=== PATIENT | female | born 1935 | race Caucasian/White ===

== ENCOUNTER 2017-08-10 21:44 | Inpatient (IN) | payer MEDICARE ==
--- NOTE | 2017-08-10 23:05 | ED ---
Lower Extremity - HPI Summary HPI Summary: 82 female presents to ED BIBA accompanied by sons with complaints of left hip pain after a fall. Patient states she falls often due to a condition she has had for years. She gets dizzy and falls and this has already been worked up multiple times in the past with neurologist without findings. Thought to be a genetic trait causing dizzy spells and falling. Today she experienced this spell and fell onto her left hip early this evening. Has been unable to walk and bear weight since due to the pain. Denies numbness/tingling. States it hurts when she tries to move her left lower extremity. Denies any neck or back pain. Denies hitting head. No LOC. No other complaints at this time. No abdominal pain or chest pain. - History of Current Complaint Chief Complaint: EDExtremityLower Stated Complaint: FALL, LEFT HIP PAIN Time Seen by Provider: 08/10/17 22:12 Hx Obtained From: Patient, Family/Cofounder - son Mechanism Of Injury: Fall From A Standing Position Onset of Pain: Immediate, Post Accident Onset/Duration: Still Present Severity Initially: Moderate Severity Currently: Moderate Pain Intensity: 5 Pain Scale Used: 0-10 Numeric Timing: Constant Location: Is Discrete @ - left hip Character Of Pain: Sharp, Aching Associated Signs And Symptoms: Positive: Negative Aggravating Factor(s): Standing, Ambulation, Movement, Weight Bearing Alleviating Factor(s): Rest, Nothing Able to Bear Weight: No - Allergies/Home Medications Allergies/Adverse Reactions: Allergies Allergy/AdvReac Type Severity Reaction Status Date / Time Penicillins Allergy Severe Anaphylatic Verified 01/17/17 11:20 Shock PMH/Surg Hx/FS Hx/Imm Hx Endocrine/Hematology History: Denies: Hx Anticoagulant Therapy, Hx Diabetes Cardiovascular History: Denies: Hx Hypertension, Hx Pacemaker/ICD GI History: Reports: Other GI Disorders - COLITIS History: Denies: Hx Renal Disease Sensory History: Reports: Hx Cataracts - LEFT EYE SURGERY 2012, Hx Contacts or Glasses - GLASSES, Hx Hearing Aid - WEARS OCCASSIONALLY Opthamlomology History: Reports: Hx Cataracts - LEFT EYE SURGERY 2012, Hx Contacts or Glasses - GLASSES Psychiatric History: Reports: Hx Depression Denies: Hx Panic Disorder - Cancer History Cancer Type, Location and Year: BREAST CA 2006. SKIN CANCER REMOVED FROM NOSE Hx Chemotherapy: Yes Hx Radiation Therapy: Yes - Surgical History Surgery Procedure, Year, and Place: APPENDIX A CHILD. 1980 COLLAPSED LUNG [facility]. 1985 HYSTERECTOMY [facility]/ DEVELOPED ADHESIONS AFTER HYSTERECTOMY. 2006 LEFT BREAST LUMPECTOMY(CANCEROUS) [facility]. 2006 INFUSAPORT [facility] SINCE HAS BEEN REMOVED. CATARACTS Hx Anesthesia Reactions: No - Immunization History Immunizations Up to Date: Yes Infectious Disease History: No Infectious Disease History: Denies: Traveled Outside the [place] in Last 30 Days - Family History Known Family History: Negative: Hypertension, Diabetes - Social History Alcohol Use: Rare Alcohol Amount: special events/occasions Substance Use Type: Reports: None Smoking Status (MU): Former Smoker Type: Cigarettes Amount Used/How Often: 1PPD 25 YRS Have You Smoked in the Last Year: No Review of Systems Constitutional: Negative Cardiovascular: Negative Respiratory: Negative Gastrointestinal: Negative Positive: Arthralgia, Myalgia, Decreased ROM - left hip Positive: Bruising - from previous falls, healing Neurological: Negative All Other Systems Reviewed And Are Negative: Yes Physical Exam Triage Information Reviewed: Yes Vital Signs On Initial Exam: Initial Vitals Temp Pulse Resp BP Pulse Ox 97.8 F 107 22 141/77 94 08/10/17 22:01 08/10/17 22:01 08/10/17 22:01 08/10/17 22:01 08/10/17 22:01 tachycardia noted, asymptomatic, patient in pain Vital Signs Reviewed: Yes Appearance: Positive: Well-Appearing, Well-Nourished, Pain Distress - mild to moderate when trying to move Skin: Positive: Warm, Skin Color Reflects Adequate Perfusion, Dry, Other - healing bruising noted on left face and left thigh yellow/purple in color from previous falls per patient. Negative: Cold, Cyanosis @, Pale, Erythema @ Head/Face: Positive: Normal Head/Face Inspection Eyes: Positive: Conjunctiva Clear ENT: Positive: Hearing grossly normal Neck: Positive: Supple, Nontender Respiratory/Lung Sounds: Positive: Clear to Auscultation, Breath Sounds Present. Negative: Rales, Rhonchi, Wheezes Cardiovascular: Positive: Normal, RRR, Pulses are Symmetrical in both Upper and Lower Extremities - 2+ pedal b/l. Negative: Murmur, Rub Musculoskeletal: Positive: Limited @ - left lower extremity at hip, Pain @ - left hip with palpation and any movement, proximal femur, Other - rest of MSK exam normal. Negative: Interruption @, Abnormal @, Edema Left, Edema Right Neurological: Positive: Normal, Sensory/Motor Intact, Alert, Oriented to Person Place, Time, NV Bundle Intact Distally, Unable to Assess Gait - Balta Coma Scale Coma Scale Total: 15 Diagnostics - Vital Signs Vital Signs Temp Pulse Resp BP Pulse Ox 08/10/17 22:26 113 18 94 08/10/17 22:05 107 20 141/68 93 08/10/17 22:03 105 14 93 08/10/17 22:01 97.8 F 107 22 141/77 94 - Laboratory Lab Statement: Any lab studies that have been ordered have been reviewed, and results considered in the medical decision making process. - Radiology left hip/pelvis Xray Interpretation: Positive (See Comments) - left femoral neck fracture Radiology Interpretation Completed By: ED Physician - Dr Horne and myself chest Xray Interpretation: No Acute Changes Radiology Interpretation Completed By: ED Physician - and myself Lower Extremity Course/Dx - Course Course Of Treatment: xray obtained and positive for femoral neck fracture of left hip. basic labs/ekg and chest xray obtained for pre op prior to admission. spoke with Dr Ruvalcaba at 11:55pm who will admit. Given pain med orders. no concerns for other injuries at this time. no neck, back or head pain/injury. normal vitals other than slight tachycardia however patient is in pain due to fracture. rest of PE normal. - Diagnoses Differential Diagnosis/HQI/PQRI: Positive: Dislocation, Fracture (Closed), Sprain, Strain Provider Diagnoses: Hip fracture, left Discharge - Discharge Plan Condition: Stable Disposition: ADMITTED TO [facility] Referrals: Jayden Murcia NP [Primary Care Provider] -
[2017-08-10] MEDS ORDERED: NS 0.9% 1000 ML* 1,000 ML IV SCH (23:45)
[2017-08-10] MEDS ORDERED: Acetaminophen TAB* 325 MG PO PRN (23:49)
[2017-08-10] MEDS ORDERED: Ondansetron INJ* 2 MG/ML VIAL IV PRN (23:50)
[2017-08-10] MEDS ORDERED: Albuterol 2.5 MG/3 ML NEB.SOL* (0.083%) INH PRN (23:50)
[2017-08-10] MEDS ORDERED: CMCS: Melatonin (NF) 3 MG TAB PO PRN (23:50)
[2017-08-10] MEDS ORDERED: fentaNYL* 50 MCG/ML 2 ML VIAL (100 MCG VIAL) IV SLOW PU PRN (23:50)
--- NOTE | 2017-08-10 23:52 | HP ---
H&P (Free Text) History and Physical: PCP: Mahin Murcia NP Date/Time: 08/10/2017 2340 CC: L hip pain s/p fall HPI: Mrs Paige is an 82YO female HX ulcerative colitis, HLD, & breast CA who has a long-standing history of falls. She is here tonight after such a fall witnessed by her son who states she got up, stated, "Here I go." and fell to the floor which is her typical. She denies chest pain, SOB, palpitations, N/V, light-headedness, or spinning. She does states she got dizzy, but when clarified means she became weak all over. There was no head injury or LOC. At this time, she only complains of L hip pain which has been confirmed to have a L femoral neck FX on XRY. She is noted to have katy-oral & nasal facial ecchymosis from a fall Tuesday for which she was not evaluated. She denies neck pain or other related issues. Her falling history has been evaluated by neurology without definitive findings per patient/family. 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 Aspirin TAB* [Aspirin 325 MG TAB*] 325 mg PO DAILY 06/25/13 Balsalazide (NF) 3,000 mg PO BID 06/25/13 Polyethylene Glycol 3350* [Miralax*] 17 gm PO DAILY 06/25/13 Allergies Penicillins Allergy (Severe, Verified 01/17/17 11:20) Anaphylatic Shock PSurgHx appendectomy hysterectomy SocHx: no tobacco, alcohol, or recreational drugs; lives with her son; full code status FamHx: reviewed, non-contributory to presentation ROS: as above, otherwise reviewed and all were negative vitals: Vital Signs Temp 36.6 C 08/10/17 22:01 Pulse 108 08/10/17 23:30 Resp 17 08/10/17 23:30 BP 135/62 08/10/17 23:30 Pulse Ox 93 08/10/17 23:30 Intake & Output 08/10/17 08/10/17 08/11/17 11:59 23:59 11:59 Weight 52.163 kg Constitutional: NAD, normally developed, elderly white female HEENM: sclera/conjunctiva: anicteric/clear; hearing: ; oropharynx: clear, mucosa tacky Neck: soft tissue: non-tender; thyroid: normal Pulmonary: clear to auscultation bilaterally, good aeration, no accessory muscle use CV: RR/RR, normal S1S2, no carotid bruit, no jugular venous distention, 2+ B DP/ PT, no edema Abdominal: soft, non-distended, non-tender, no rebound/guarding/rigidity, normoactive bowel sounds, no hepatosplenomegaly or masses, no costovertebral angle tenderness Musculoskeletal: general: LLE shortened & externally rotated; gait: currently non-ambulatory Integumental: katy-oral ecchymosis L>R Psychiatric orientation: AA&O to PPS affect: calm mood: cooperative eye contact: fair content: reliable responses: timely insight: fair Testing: Lab Results 08/11/17 08/11/17 08/11/17 Range/Units 00:15 00:15 00:15 WBC 7.7 (3.5-10.8) 10^3/ul RBC 4.01 (4.0-5.4) 10^6/ul Hgb 12.8 (12.0-16.0) g/dl Hct 38 (35-47) % MCV 94 (80-97) fL MCH 32 H (27-31) pg MCHC 34 (31-36) g/dl RDW 14 (10.5-15) % Plt Count 128 L (150-450) 10^3/ul MPV 8 (7.4-10.4) um3 Neut % (Auto) 85.2 H (38-83) % Lymph % (Auto) 7.7 L (25-47) % [place] % (Auto) 6.7 (1-9) % Eos % (Auto) 0.2 (0-6) % Baso % (Auto) 0.2 (0-2) % Absolute Neuts (auto) 6.6 (1.5-7.7) 10^3/ul Absolute Lymphs (auto) 0.6 L (1.0-4.8) 10^3/ul Absolute Monos (auto) 0.5 (0-0.8) 10^3/ul Absolute Eos (auto) 0 (0-0.6) 10^3/ul Absolute Basos (auto) 0 (0-0.2) 10^3/ul Absolute Nucleated RBC 0 10^3/ul Nucleated RBC % 0.1 INR (Anticoag Therapy) 0.94 (0.77-1.02) Blood Type O Positive Antibody Screen Pending ECG, personally reviewed: sinus tachycardia rate 101, no ischemia CXR, personally reviewed: no acute process Impression: 82F presenting with L femoral neck FX s/p mechanical fall DIAGNOSIS & PLAN Primary L femoral neck FX 2nd mechanical fall : Carley Dickens MD orthopedic surgery will be called in the AM to evaluate : NPO after midnight x/ meds with sips of water : pain control : Pre-operative Revised Cardiac Risk Index is 0.4% & no further pre-op work up is indicated. : supportive care Secondary ulcerative colitis : no acute issues : review meds once reconciled HLD : review meds once reconciled HX trigeminal neuralgia : no acute issues HX L breast invasive ductal CA : s/p chemo-/radio-TX : no acute issues Admission Rational: inpatient for surgical management of L femoral neck FX; inappropriate for outpatient setting DVTp: heparin SQ x1 tonight, resume when OK per surgery post-op Code Status: full HCP: son
[2017-08-11 00:26] LABS: ABS Basophils 0 10^3/ul (0-0.2); ABS Eosinophils 0 10^3/ul (0-0.6); ABS Lymphocytes 0.6 10^3/ul (1.0-4.8); ABS Monocytes 0.5 10^3/ul (0-0.8); ABS Neutrophils 6.6 10^3/ul (1.5-7.7); ABS Nucleated RBC 0 10^3/ul; Eosinophil % 0.2 % (0-6); Hematocrit 38 % (35-47); Hemoglobin 12.8 g/dl (12.0-16.0); Lymphocyte % 7.7 % (25-47); Mean Corpuscular HGB Conc 34 g/dl (31-36); Mean Corpuscular Hemoglobin 32 pg (27-31); Mean Corpuscular Volume 94 fL (80-97); Mean Platelet Volume 8 um3 (7.4-10.4); Nucleated Red Blood Cells % 0.1; Platelet Count 128 10^3/ul (150-450); Red Blood Count 4.01 10^6/ul (4.0-5.4); Red Cell Distribution Width 14 % (10.5-15); White Blood Count 7.7 10^3/ul (3.5-10.8)
[2017-08-11 00:40] LABS: INR 0.94 (0.77-1.02)
[2017-08-11 01:19] LABS: EGFR Non-African American 123.5 (>60)
[2017-08-11] MEDS: oxyCODONE TAB* 5 MG TAB PO PRN (06:24)
--- NOTE | 2017-08-11 07:45 | RAD ---
INDICATION: Traumatic fracture left hip COMPARISON: Pelvis April 22, 2016 TECHNIQUE: An AP view of the pelvis and AP views of the hip in neutral and abducted position were obtained FINDINGS: Bones: There is a subcapital fracture of the left femur with varus deformity. No other fractures are evident. Joint spaces: The right hip articulates normally. Left femoral head is positioned in the acetabulum. SI joints/symphysis: The SI joints and symphysis are intact. Other: None IMPRESSION: SUBCAPITAL FRACTURE LEFT FEMUR.
--- NOTE | 2017-08-11 07:46 | RAD ---
INDICATION: Traumatic fracture left hip COMPARISON: Chest x-ray April 22, 2016 TECHNIQUE: PA and lateral dual-energy views were obtained. FINDINGS: Bones/Soft Tissues: There are no acute bony findings. There are surgical clips in left axilla. Cardiomediastinal: The chronic silhouette is unchanged. There is uncoiling of the thoracic aorta. The heart is normal in size. Lungs: There are no infiltrates. Pleura: There are no pleural effusions. Other: None IMPRESSION: NO ACTIVE DISEASE.
[2017-08-11] MEDS ORDERED: Pneumococcal *Vac Polyvalent 0.5 ML VIAL IM ONE (09:00)
[2017-08-11] MEDS: Docusate CAP* 100 MG PO SCH ×2 (09:10→22:09)
[2017-08-11] MEDS: Pantoprazole IV* 40 MG IV SCH (09:22)
[2017-08-11 11:47] LABS: Urine Appearance Clear; Urine Blood Negative (Negative); Urine Color Yellow; Urine Ketones Trace (Negative); Urine Protein Negative (Negative); Urine Specific Gravity 1.015 (1.010-1.030); Urine Urobilinogen Negative (Negative)
[2017-08-11] MEDS ORDERED: ceFAZolin 2 GM PREMIX (*) 2 GM/50 ML BAG IVPB ONE (12:45)
--- NOTE | 2017-08-11 13:30 | CONS ---
CONSULTATION NOTE: DATE OF CONSULT: 08/11/17. ATTENDING PROVIDER: Dr. Sameer Dickens. CHIEF COMPLAINT: Left hip pain status post fall. HISTORY OF PRESENT ILLNESS: Ms. Paige is an 82-year-old female with a history of ulcerative colitis, hyperlipemia, breast cancer, and a long history of falls. Up until this point, she was having falls for at least the past 4 years , 4 to 5 times per year, more recently they have evolved to be once every 2 weeks and this week, she has had 3 falls. The fall that brought her in occurred on the night of 08/10. This fall was witnessed by her son, who states that she got up from a chair and stated, "here I go." Patient fell to the floor which is typical, according to her family within the room. Patient was startled, but she did not immediately state that she had any left leg pain, she was brought to sit back up on the cough and it was not until getting up to go to bed that her family realized that she was injured badly enough to come to the emergency room. At the time of the fall, she did not have any chest pain, shortness of breath, dizziness, changes in vision, loss of consciousness. She notes that she did not hit her head. Earlier in the week, she did fall and hit her face, 3 days prior to this, which resulted in bruising of the perioral region and of her nose, but she did not injure her face with the fall in which she fell on to her left hip. Patient states that prior to her fall, she does feel that she get dizzy but does not have any chest pain, shortness of breath. She cannot say if she has any mechanical falls or tripping. At this time, she complains of left hip pain only with movement. X-rays shows a left femoral neck fracture. Patient has had surgery before. She has no difficulties with anesthesia. She has no history of heart attack or strokes. She has no cardiac history. No pulmonary history. She has never had a blood clot. She does not have diabetes or any thyroid disease. PAST MEDICAL HISTORY: Includes ulcerative colitis, hyperlipidemia, trigeminal neuralgia, breast cancer, possible diagnosis of Parkinson's which has been questioned by her neurologist, last evaluation one year ago. PAST SURGICAL HISTORY: Appendectomy, hysterectomy. ALLERGIES: PENICILLIN. MEDICATIONS: as noted in EHR SOCIAL HISTORY: Patient does not drink alcohol, smoke or use recreational drugs. She lives with her son. She is a full code. REVIEW OF SYSTEMS: General: Denies any fever, chills, feelings of illness. HEENT: No headaches, acute changes in vision or acute changes in hearing. Patient does have an injury to her nose and face from a fall earlier this week. Cardiac: No chest pain, no irregular beats. No history of VT. Respiratory: No shortness of breath. Patient does have a cough. Abdomen: No GI upset and no nausea, no vomiting or diarrhea. : No burning with urination. Musculoskeletal: Left lower extremity is painful. Neuro: No tingling, no numbness. Skin: Bruising of her face. Heme: Confirms easy bruising, but no easy bleeding. Takes ASA 325 QD. PHYSICAL EXAM: Vitals: Temp 98.3, pulse 87, respiratory rate 16, oxygen saturation 91, blood pressure 128/64. Constitutional: No acute distress, well appearing. Patient answers questions fairly readily, but she does sometimes lose track of her thoughts. HEENT: EOMI. Head is normocephalic, atraumatic. Neck: No cervical tenderness. Pulmonary: Normal rate and effort of breathing. Cardio: Radial pulse 2+, regular rhythm. Abdomen: Soft, no masses. No suprapubic tenderness. Musculoskeletal: Left lower extremity is shortened, externally rotated. Patient is unable to produce movement at the left hip or knee due to pain. Dorsiflexion and plantarflexion are intact at the ankle. Neuro: Sensation is intact distally on the left lower extremity. Vascular: Calves supple, nontender. 2+ dorsalis pedis and posterior tibial pulse. Skin: Patient has bruising around the perioral region as well as into bilateral cheeks and across the bridge of the nose. She has ecchymosis as well of the lateral aspect of the left lower extremity. ASSESSMENT: Subcapital fracture of the left femur which is also shown on x-ray done 08/10. PLAN: Patient will be taken to the operating room by Dr. Sameer Dickens around 1 p.m. for right hip hemiarthroplasty on 08/11/17. She has been evaluated by the hospitalist service and has been deemed as medically optimized for surgery. REINA CORRAL [id number]/[facility] #: [id number] [facility] HOSPITALMartha
[2017-08-11] MEDS ORDERED: Midazolam* 1 MG/ML 2 ML VIAL (2 MG) ONE (13:57)
[2017-08-11] MEDS ORDERED: fentaNYL* 50 MCG/ML 2 ML VIAL (100 MCG VIAL) ONE (13:57)
[2017-08-11] MEDS ORDERED: Morphine PF AMP (0.5MG/ML)* 5 MG/10 ML AMP ONE (14:02)
[2017-08-11] MEDS ORDERED: ROPIVACAINE 5 MG/ML 30 ML BTL (0.5%) ONE (14:03)
[2017-08-11] MEDS ORDERED: Propofol* 10 MG/ML 20 ML BTL IV PUSH ONE (15:05)
[2017-08-11] MEDS ORDERED: oxyCODONE/Acetamin 5/325 MG* TAB PO PRN ×2 (15:51→16:30)
[2017-08-11] MEDS ORDERED: Nalbuphine* 20 MG/ML 1 ML VIAL IV PRN ×2 (15:51)
[2017-08-11] MEDS ORDERED: Ondansetron INJ* 2 MG/ML VIAL IV PRN (15:51)
[2017-08-11] MEDS ORDERED: Acetaminophen TAB* 325 MG PO PRN (15:51)
[2017-08-11] MEDS ORDERED: HYDROmorphone INJ* 1 MG/ML CARPUJECT SYRINGE IV PRN (15:51)
[2017-08-11] MEDS ORDERED: Naloxone* 0.4 MG/ML 1 ML VIAL IV PRN ×2 (15:51)
[2017-08-11] MEDS ORDERED: oxyCODONE TAB* 5 MG TAB PO PRN (15:51)
[2017-08-11] MEDS ORDERED: Ibuprofen TAB* 400 MG PO PRN (15:51)
[2017-08-11] MEDS ORDERED: Morphine INJ* 2 MG/ML 1 ML SYRINGE (TWO MG - NEW SYRINGE VERSION) IV PRN (16:30)
--- NOTE | 2017-08-11 17:06 | PN ---
Subjective Date of Service: 08/11/17 Interval History: Patient seen and examined at bedside in PACU. Denies fever, chills, shortness of breath, chest discomfort, N/V/D. Pt states that pain is controlled at this time. Pt has an essential tremor at baseline. Family History: Unchanged from Admission Social History: Unchanged from Admission Past Medical History: Unchanged from Admission Objective Active Medications: Acetaminophen (Tylenol Tab*) 650 mg PO Q6H PRN Reason: FEVER/PAIN Acetaminophen (Tylenol Tab*) 650 mg PO ONCE PRN Reason: PAIN - MILD Stop: 08/11/17 18:00 Albuterol (Ventolin 2.5 Mg/3 Ml Neb.Aminah*) 2.5 mg INH Q2H PRN Reason: SOB/ WHEEZING Docusate Sodium (Colace Cap*) 200 mg PO BID MINESH Fentanyl Citrate (Fentanyl*) 25 mcg IV SLOW PU Q2H PRN Reason: PAIN Heparin Sodium (Porcine) (Heparin Vial(*)) 5,000 units SUBCUT ED ONCE ONE Stop: 08/11/17 23:51 Hydromorphone HCl (Dilaudid Injic*) 0.1 mg IV Q5M PRN Reason: PAIN - SEVERE Stop: 08/11/17 18:00 Sodium Chloride (Ns 0.9% 1000 Ml*) 1,000 mls @ 50 mls/hr IV PER RATE MINESH Ibuprofen (Motrin Tab*) 400 mg PO ONCE PRN Reason: MILD pain Stop: 08/11/17 18:00 Melatonin (Melatonin (Nf)) 3 mg PO BEDTIME PRN; Protocol Reason: Sleep Nalbuphine HCl (Nubain*) 5 mg IV Q6H PRN Reason: Nausea/Vomiting Stop: 08/12/17 06:00 Nalbuphine HCl (Nubain*) 5 mg IV Q6H PRN Reason: pruritis Stop: 08/12/17 06:00 Naloxone HCl (Narcan*) 0.08 mg IV Q2M PRN Reason: severe induced resp depression Stop: 08/11/17 18:30 Naloxone HCl (Narcan*) 0.08 mg IV Q2M PRN Reason: severe induced resp depression Stop: 08/12/17 06:00 Ondansetron HCl (Zofran Inj*) 4 mg IV Q6H PRN Reason: NAUSEA Ondansetron HCl (Zofran Inj*) 4 mg IV Q6H PRN Reason: Nausea/Vomiting Stop: 08/12/17 06:00 Oxycodone HCl (Roxycodone Tab*) 10 mg PO Q4H PRN Reason: PAIN Oxycodone HCl (Roxycodone Tab*) 5 mg PO ONCE PRN Reason: PAIN - MODERATE Stop: 08/11/17 18:00 Oxycodone/Acetaminophen (Percocet 5/325 Tab*) 1 tab PO Q4H PRN Reason: Moderate Pain Stop: 08/12/17 06:00 Pantoprazole Sodium (Protonix Iv*) 40 mg IV DAILY MINESH Vital Signs - 8 hr 08/11/17 09:15 Respiratory 16 Rate Oxygen Devices in Use Now: None Appearance: NAD, laying in bed Ears/Nose/Mouth/Throat: Mucous Membranes Moist Respiratory: Symmetrical Chest Expansion and Respiratory Effort, Clear to Auscultation Cardiovascular: NL Sounds; No Murmurs; No JVD, RRR Abdominal: NL Sounds; No Tenderness; No Distention Extremities: No Edema Skin: No Rash or Ulcers, - - Dressing to left hip clean, dry and intact. Pt with ecchymosis to her face, older appearing on both sides of face and newer on left side of face Neurological: NL Muscle Strength and Tone, - - Alert and Oriented to Person, confused Lines/Tubes/Other Access: Clean, Dry and Intact Peripheral IV - site benign Nutrition: Taking PO's Result Diagrams: 08/11/17 00:15 08/11/17 00:15 Assess/Plan/Problems-Billing Assessment: Ms. Paige is an 82 yo female with PMH significant for ulcerative colitis, HLD, trigeminal neuraliga, left breast CA - S/P chemo and radiation who presented to the emergency room with complaints of left hip pain after a fall at home. - Patient Problems (1) Fracture of left hip Code(s): S72.002A - FRACTURE OF UNSP PART OF NECK OF LEFT FEMUR, INIT SNOMED Code(s): 699631667 Comment: - S/P left hip hemiarthroplasty, POD - Ortho consult, input appreciated - Management per Ortho - OT/PT eval in the AM - Continue pain management (2) Falls Comment: - Frequent falls according to son. (3) Ulcerative colitis Code(s): K51.90 - ULCERATIVE COLITIS, UNSPECIFIED, WITHOUT COMPLICATIONS SNOMED Code(s): 54422674 Comment: - Continue balsalazide. (4) Breast cancer, left Code(s): C50.912 - MALIGNANT NEOPLASM OF UNSPECIFIED SITE OF LEFT FEMALE BREAST SNOMED Code(s): 119962105 Comment: - S/P chemo and radiation (5) HLD (hyperlipidemia) Code(s): E78.5 - HYPERLIPIDEMIA, UNSPECIFIED SNOMED Code(s): 65019327 (6) Trigeminal neuralgia Code(s): G50.0 - TRIGEMINAL NEURALGIA SNOMED Code(s): 42248604 (7) DVT prophylaxis Code(s): NRP9154 - SNOMED Code(s): 266862429 Comment: - SCDs - Heparin Q12H until Tuesday, then Lovenox 30mg daily per Ortho (8) Full code status Code(s): Z78.9 - OTHER SPECIFIED HEALTH STATUS SNOMED Code(s): 493929690 Status and Disposition: Inpatient. Discharge to home when medically stable, suspect she may need rehab at discharge.
--- NOTE | 2017-08-11 17:40 | RAD ---
Indication: Left hemiarthroplasty. Single view of the pelvis demonstrates left hip arthroplasty in satisfactory position. No loosening is noted. IMPRESSION: Left hip hemiarthroplasty in satisfactory position.
[2017-08-11] MEDS: NS 0.9% 1000 ML* 1,000 ML IV SCH (18:00)
--- NOTE | 2017-08-11 20:32 | CONS ---
CONSULTATION NOTE: ADDENDUM: Please note that the entirety of this consult is based on the left femur. In the assessment and plan, it was noted right femur that is incorrect, this is left femur with the subcapital fracture that is going for hemiarthroplasty with Dr. Dickens on 08/11/17. REINA CORRAL [id number]/[facility] #: [id number] [facility] INSANEMartha
[2017-08-11] MEDS ORDERED: Heparin VIAL(*) 5000 UNITS/ML VIAL (FIVE THOUSAND) SUBCUT SCH (21:00)
[2017-08-11] MEDS ORDERED: Balsalazide (NF) 750 MG CAP PO SCH (21:00)
[2017-08-11] MEDS: Magnesium Hydroxide LIQ* 30 ML UDC PO SCH (22:09)
[2017-08-11] MEDS: ceFAZolin 1 GM in Dextrose (*) 1 GM/50 ML BAG IVPB SCH (22:10)
[2017-08-11] MEDS: PTO: Balsalazide (NF) 750 MG CAP PO SCH (22:25)
[2017-08-11] MEDS ORDERED: Heparin VIAL(*) 5000 UNITS/ML VIAL (FIVE THOUSAND) SUBCUT ONE (23:50)
[2017-08-12] MEDS: Acetaminophen TAB* 325 MG PO SCH ×4 (00:19→18:09)
--- NOTE | 2017-08-12 00:32 | OP ---
DATE OF OPERATION: 08/11/17 - ROOM #339 DATE OF : 33 SURGEON: Sameer Dickens MD ASSISTANTS: 1. Carisa Medina RPA 2. REINA Arita ANESTHESIOLOGIST: Jen Alicea MD ANESTHESIA: Spinal sedation. PRE-OP DIAGNOSIS: Displaced left femoral neck fracture. POST-OP DIAGNOSIS: Displaced left femoral neck fracture. OPERATIVE PROCEDURE: Left hip hemiarthroplasty. ESTIMATED BLOOD LOSS: 150 cc. COMPLICATIONS: None. HARDWARE: Christin #4 M/L taper with reduced neck, +0, 22 mm head, 46 mm bipolar head. SUMMARY: Ms. Paige is an 82-year-old female who has been having more and more troubles with falling. She had fallen yesterday evening and had a shortened and very painful left leg. She was brought to the emergency room here at [facility] and x-rays were taken, which had found a displaced femoral neck fracture. She was admitted overnight and I was notified this morning that she had been admitted. I add her on to the OR schedule and when I met her preoperatively, I discussed with her and her son risks of surgery such as infection, scar formation, stiffness, DVT, pulmonary embolism, hardware failure, leg length discrepancy, and instability. She had been declared medically optimized and they wished to proceed. DESCRIPTION OF PROCEDURE: The patient was brought to the OR and spinal anesthesia was introduced. She was then rolled into the right lateral decubitus position. Axillary roll was placed and she was wide awake at this point and reported that she felt fairly comfortable in this position. Left hip area was prepped and then draped. Incision was made, centered on the greater trochanter and carried down through the skin and subcutaneous tissues. Small bleeders encountered were ligated using electrocautery. Fascia was exposed and sharply incised. Bursa was taken down from the greater trochanter and developing the interval on the posterior aspect of the gluteus medius/gluteus minimus. I was able to get a Hohmann underneath. Piriformis could be easily palpable underneath. Electrocautery was then used to take down piriformis capsule and short external rotators together. Dark blood indicative of hematoma was immediately evident. Area was pulse lavaged and the area of the fracture was immediately evident. Leg was brought into internal rotation showing the femoral neck and the cutting guide was placed and the femoral neck cut was cleaned up. This helped in exposure so that I could see the fracture on the femoral head side. Corkscrew was fully seated in the femoral head and then used to remove the femoral head. This measured 42 mm in size. When I templated her, I thought it would be between 42 to 43 mm and that she would take either a 4 or a 5 for the implant. She had still a champagne flute for the proximal femur as she still had decent cortex, so I thought we would be able to be noncemented. Acetabulum was swept multiple times as well as pulse lavaged to remove other small bony bits and eventually this was nice and clean. Attention was returned to the femoral neck. Correct cutting guide was then found and femoral neck cut was recut and additional bone was taken. Box osteotome was used to open a femoral canal and the canal finder was not easily passed. Canal finder came down a little bit, but I then had to work it a little bit. I was, however, eventually able to bring it further down-wards. Beginning with a 4 broach, she was then broached. I had lateralized with the broach, but even with the 4, I could not fully seat coming to the end of the rasp with the end of the rasp being several millimeters high. I continued to impact downwards a little bit, but I did not want to break the femur. She was then trialed with a +0 monopolar head and actually this seemed to equalize her leg length and she had excellent stability throughout. With extension, she stayed nicely located as well and the knee did not extend as I brought her into extension. Therefore, I thought she was where she needed to be. The bipolar head was removed and the #4 broach was still solidly in place. A #4 reduced neck M/L taper was called for as this was what was trialed and what I had templated for. A #4 was then impacted into place and part of the porous ingrowth portion stayed free as I did not want to break the femur. She was again trialed with a +0 bipolar head and her leg length appeared to be good +0, 22 mm head, followed by the polyethylene and the metal cap were placed and she was then reduced. Capsule and short external rotators were repaired to the posterior aspect of the greater trochanter. Hip was again grossly pulse lavaged. The fascia was repaired using interrupted #1 Vicryl sutures and the last of the 3 L of pulse lavage were then used. Subcutaneous tissues were reapproximated in 2 layers and then skin was closed using mara. Sterile dressing was applied in the OR. Abduction pillow was also applied in the OR. The patient was then rolled on to the hospital bed and was stable on transfer to the recovery room. [id number]/[facility] #: [id number] MTDMartha
[2017-08-12] MEDS: NS 0.9% 1000 ML* 1,000 ML IV SCH ×2 (02:47→15:50)
[2017-08-12 05:51] LABS: Hematocrit 26 % (35-47); Hemoglobin 8.8 g/dl (12.0-16.0); Mean Corpuscular HGB Conc 34 g/dl (31-36); Mean Corpuscular Hemoglobin 32 pg (27-31); Mean Corpuscular Volume 94 fL (80-97); Mean Platelet Volume 7 um3 (7.4-10.4); Platelet Count 103 10^3/ul (150-450); Red Blood Count 2.78 10^6/ul (4.0-5.4); Red Cell Distribution Width 14 % (10.5-15); White Blood Count 3.8 10^3/ul (3.5-10.8)
[2017-08-12 06:05] LABS: EGFR Non-African American 110.2 (>60)
[2017-08-12] MEDS: ceFAZolin 1 GM in Dextrose (*) 1 GM/50 ML BAG IVPB SCH (06:11)
--- NOTE | 2017-08-12 08:29 | PN ---
Progress Note - Progress Note Date of Service: 08/12/17 SOAP: Subjective: 82 y/o female s/p L hemiarthroplasty 08/[address] Dickens, uncompliated. + tachy overnight. + confused per nursing and family, but improving. No complaints, no questions from family. Objective: General- Well appearing, sitting in chair comfortably, NAD MSK- dressing intact, no drainage noted, no induration, erythema. + DF/PF, PT 2+ L side. Active Medications Generic Name Dose Route Start Last Admin Trade Name Freq PRN Reason Stop Dose Admin Acetaminophen 975 mg 08/12/17 00:00 08/12/17 10:25 Tylenol Tab* PO 975 mg Q6H MINESH Administration Albuterol 2.5 mg 08/10/17 23:50 Ventolin 2.5 Mg/3 Ml Neb.Aminah* INH Q2H PRN SOB/WHEEZING Balsalazide 3,000 mg 08/11/17 22:15 08/12/17 10:40 Balsalazide (Nf) PO 3,000 mg BID MINESH Administration Docusate Sodium 200 mg 08/11/17 09:00 08/12/17 10:27 Colace Cap* PO 200 mg BID MINESH Administration Enoxaparin Sodium 30 mg 08/14/17 09:00 Lovenox(*) SUBCUT Q24H MINESH Fentanyl Citrate 25 mcg 08/10/17 23:50 08/11/17 01:32 Fentanyl* IV SLOW PU 25 mcg Q2H PRN Administration PAIN Heparin Sodium (Porcine) 5,000 units 08/13/17 09:00 Heparin Vial(*) SUBCUT 08/13/17 21:30 Q12HR MINESH Heparin Sodium (Porcine) 5,000 units 08/12/17 09:00 08/12/17 10:29 Heparin Vial(*) SUBCUT 5,000 units Q12HR MINESH Administration Sodium Chloride 1,000 mls @ 75 mls/hr 08/11/17 18:58 08/12/17 02:47 Ns 0.9% 1000 Ml* IV 75 mls/hr PER RATE MINESH Administration Cefazolin Sodium 1 gm/ Sodium 50 mls @ 200 mls/hr 08/12/17 14:30 Chloride IVPB 08/12/17 14:44 ONCE ONE Magnesium Hydroxide 30 ml 08/11/17 21:00 08/11/17 22:09 Milk Of Magnesia Liq* PO Not Given BEDTIME MINESH Melatonin 3 mg 08/10/17 23:50 Melatonin (Nf) PO BEDTIME PRN Sleep Protocol Morphine Sulfate 2 mg 08/11/17 16:30 Morphine Inj (Syringe)* IV Q2H PRN PAIN SEVERE Ondansetron HCl 4 mg 08/10/17 23:50 08/11/17 09:22 Zofran Inj* IV 4 mg Q6H PRN Administration NAUSEA Oxycodone HCl 10 mg 08/11/17 06:16 08/11/17 06:24 Roxycodone Tab* PO 10 mg Q4H PRN Administration PAIN Oxycodone/Acetaminophen 2 tab 08/11/17 16:30 Percocet 5/325 Tab* PO Q4H PRN PAIN MODERATE Pantoprazole Sodium 40 mg 08/11/17 09:00 08/12/17 10:30 Protonix Iv* IV 40 mg DAILY MINESH Administration Assessment: Stable 82 y/o female s/p L hemiarthroplasty 08/[address] Dickens, uncompliated. Plan: - DVT prophylaxis- heparin in house, lovenox at D/C - Likely D/C to rehab/ SNF - WBAT, continue PT - Low UO overnight, increasing currently continue to follow, hosp. aware. Active Medications Generic Name Dose Route Start Last Admin Trade Name Freq PRN Reason Stop Dose Admin Acetaminophen 975 mg 08/12/17 00:00 08/12/17 10:25 Tylenol Tab* PO 975 mg Q6H MINESH Administration Albuterol 2.5 mg 08/10/17 23:50 Ventolin 2.5 Mg/3 Ml Neb.Aminah* INH Q2H PRN SOB/WHEEZING Balsalazide 3,000 mg 08/11/17 22:15 08/12/17 10:40 Balsalazide (Nf) PO 3,000 mg BID MINESH Administration Docusate Sodium 200 mg 08/11/17 09:00 08/12/17 10:27 Colace Cap* PO 200 mg BID MINESH Administration Enoxaparin Sodium 30 mg 08/14/17 09:00 Lovenox(*) SUBCUT Q24H MINESH Fentanyl Citrate 25 mcg 08/10/17 23:50 08/11/17 01:32 Fentanyl* IV SLOW PU 25 mcg Q2H PRN Administration PAIN Heparin Sodium (Porcine) 5,000 units 08/13/17 09:00 Heparin Vial(*) SUBCUT 08/13/17 21:30 Q12HR MINESH Heparin Sodium (Porcine) 5,000 units 08/12/17 09:00 08/12/17 10:29 Heparin Vial(*) SUBCUT 5,000 units Q12HR MINESH Administration Sodium Chloride 1,000 mls @ 75 mls/hr 08/11/17 18:58 08/12/17 02:47 Ns 0.9% 1000 Ml* IV 75 mls/hr PER RATE MINESH Administration Cefazolin Sodium 1 gm/ Sodium 50 mls @ 200 mls/hr 08/12/17 14:30 Chloride IVPB 08/12/17 14:44 ONCE ONE Magnesium Hydroxide 30 ml 08/11/17 21:00 08/11/17 22:09 Milk Of Magnesia Liq* PO Not Given BEDTIME MINESH Melatonin 3 mg 08/10/17 23:50 Melatonin (Nf) PO BEDTIME PRN Sleep Protocol Morphine Sulfate 2 mg 08/11/17 16:30 Morphine Inj (Syringe)* IV Q2H PRN PAIN SEVERE Ondansetron HCl 4 mg 08/10/17 23:50 08/11/17 09:22 Zofran Inj* IV 4 mg Q6H PRN Administration NAUSEA Oxycodone HCl 10 mg 08/11/17 06:16 08/11/17 06:24 Roxycodone Tab* PO 10 mg Q4H PRN Administration PAIN Oxycodone/Acetaminophen 2 tab 08/11/17 16:30 Percocet 5/325 Tab* PO Q4H PRN PAIN MODERATE Pantoprazole Sodium 40 mg 08/11/17 09:00 08/12/17 10:30 Protonix Iv* IV 40 mg DAILY MINESH Administration
[2017-08-12] MEDS: Docusate CAP* 100 MG PO SCH ×2 (10:27→21:42)
[2017-08-12] MEDS: Heparin VIAL(*) 5000 UNITS/ML VIAL (FIVE THOUSAND) SUBCUT SCH ×2 (10:29→21:45)
[2017-08-12] MEDS: Pantoprazole IV* 40 MG IV SCH (10:30)
[2017-08-12] MEDS: PTO: Balsalazide (NF) 750 MG CAP PO SCH ×2 (10:40→21:49)
[2017-08-12] MEDS ORDERED: ceFAZolin 1 GM* Q8H x 3 doses IVPB ONE ×2 (14:30)
--- NOTE | 2017-08-12 17:04 | PN ---
Subjective Date of Service: 08/12/17 Interval History: Patient seen and examined at bedside. Denies fever, chills, shortness of breath , chest discomfort, N/V/D. Family History: Unchanged from Admission Social History: Unchanged from Admission Past Medical History: Unchanged from Admission Objective Active Medications: Acetaminophen (Tylenol Tab*) 975 mg PO Q6H MINESH Albuterol (Ventolin 2.5 Mg/3 Ml Neb.Aminah*) 2.5 mg INH Q2H PRN Reason: SOB/ WHEEZING Balsalazide (Balsalazide (Nf)) 3,000 mg PO BID [facility] Docusate Sodium (Colace Cap*) 200 mg PO BID [facility] Enoxaparin Sodium (Lovenox(*)) 30 mg SUBCUT Q24H MINESH Fentanyl Citrate (Fentanyl*) 25 mcg IV SLOW PU Q2H PRN Reason: PAIN Heparin Sodium (Porcine) (Heparin Vial(*)) 5,000 units SUBCUT Q12HR [facility] Stop: 08/13/17 21:30 Heparin Sodium (Porcine) (Heparin Vial(*)) 5,000 units SUBCUT Q12HR [facility] Sodium Chloride (Ns 0.9% 1000 Ml*) 1,000 mls @ 75 mls/hr IV PER RATE [facility] Magnesium Hydroxide (Milk Of Magnesia Liq*) 30 ml PO BEDTIME [facility] Melatonin (Melatonin (Nf)) 3 mg PO BEDTIME PRN; Protocol Reason: Sleep Morphine Sulfate (Morphine Inj (Syringe)*) 2 mg IV Q2H PRN Reason: PAIN SEVERE Ondansetron HCl (Zofran Inj*) 4 mg IV Q6H PRN Reason: NAUSEA Oxycodone HCl (Roxycodone Tab*) 10 mg PO Q4H PRN Reason: PAIN Oxycodone/Acetaminophen (Percocet 5/325 Tab*) 2 tab PO Q4H PRN Reason: PAIN MODERATE Pantoprazole Sodium (Protonix Iv*) 40 mg IV DAILY [facility] Vital Signs - 8 hr 08/12/17 08/12/17 08/12/17 10:30 11:37 15:34 Temperature 99.3 F 99.2 F Pulse Rate 109 99 Respiratory 16 16 18 Rate Blood Pressure (mmHg) O2 Sat by Pulse 98 99 Oximetry 08/12/17 16:03 Temperature Pulse Rate Respiratory Rate Blood Pressure 110/72 (mmHg) O2 Sat by Pulse Oximetry Oxygen Devices in Use Now: Nasal Cannula - 2L Appearance: NAD, laying in bed Ears/Nose/Mouth/Throat: Mucous Membranes Moist Respiratory: Symmetrical Chest Expansion and Respiratory Effort, Clear to Auscultation Cardiovascular: NL Sounds; No Murmurs; No JVD, RRR Abdominal: NL Sounds; No Tenderness; No Distention Extremities: - - Mild edema to left LE Skin: - - Dressing to left hip clean, dry and intact. Areas of ecchymosis to face Neurological: NL Muscle Strength and Tone, - - Alert and Oriented to Person and Place Lines/Tubes/Other Access: Clean, Dry and Intact Peripheral IV - site benign Nutrition: Taking PO's Result Diagrams: 08/12/17 05:33 08/12/17 05:33 Assess/Plan/Problems-Billing Assessment: Ms. Paige is an 82 yo female with PMH significant for ulcerative colitis, HLD, trigeminal neuraliga, left breast CA - S/P chemo and radiation who presented to the emergency room with complaints of left hip pain after a fall at home. - Patient Problems (1) Fracture of left hip Code(s): S72.002A - FRACTURE OF UNSP PART OF NECK OF LEFT FEMUR, INIT SNOMED Code(s): 733438063 Comment: - S/P left hip hemiarthroplasty, POD #1 - Ortho consult, input appreciated - Management per Ortho - OT/PT - Continue pain management (2) Falls Comment: - Frequent falls according to son. (3) Ulcerative colitis Code(s): K51.90 - ULCERATIVE COLITIS, UNSPECIFIED, WITHOUT COMPLICATIONS SNOMED Code(s): 55987857 Comment: - Continue balsalazide. (4) Breast cancer, left Code(s): C50.912 - MALIGNANT NEOPLASM OF UNSPECIFIED SITE OF LEFT FEMALE BREAST SNOMED Code(s): 795368513 Comment: - S/P chemo and radiation (5) HLD (hyperlipidemia) Code(s): E78.5 - HYPERLIPIDEMIA, UNSPECIFIED SNOMED Code(s): 76088350 (6) Trigeminal neuralgia Code(s): G50.0 - TRIGEMINAL NEURALGIA SNOMED Code(s): 61409079 (7) DVT prophylaxis Code(s): KFK5898 - SNOMED Code(s): 432066141 Comment: - SCDs - Heparin Q12H until Tuesday, then Lovenox 30mg daily per Ortho (8) Full code status Code(s): Z78.9 - OTHER SPECIFIED HEALTH STATUS SNOMED Code(s): 036057393 Status and Disposition: Inpatient. Discharge to home when medically stable, suspect she may need rehab at discharge.
[2017-08-12] MEDS: oxyCODONE TAB* 5 MG TAB PO PRN (21:40)
[2017-08-12] MEDS: Magnesium Hydroxide LIQ* 30 ML UDC PO SCH (21:43)
[2017-08-13] MEDS: Acetaminophen TAB* 325 MG PO SCH ×4 (00:06→18:02)
[2017-08-13] MEDS: NS 0.9% 1000 ML* 1,000 ML IV SCH ×2 (04:52→21:02)
[2017-08-13 05:44] LABS: Hematocrit 22 % (35-47); Hemoglobin 7.3 g/dl (12.0-16.0); Mean Corpuscular HGB Conc 34 g/dl (31-36); Mean Corpuscular Hemoglobin 32 pg (27-31); Mean Corpuscular Volume 94 fL (80-97); Mean Platelet Volume 8 um3 (7.4-10.4); Platelet Count 98 10^3/ul (150-450); Red Blood Count 2.29 10^6/ul (4.0-5.4); Red Cell Distribution Width 14 % (10.5-15); White Blood Count 3.1 10^3/ul (3.5-10.8)
[2017-08-13 05:58] LABS: EGFR Non-African American 136.6 (>60)
--- NOTE | 2017-08-13 08:22 | PN ---
Progress Note - Progress Note Date of Service: 08/13/17 SOAP: Subjective: POD #3 Left hip hemiarthroplasty. Pt very confused, but not reporting any pain, CP/SOB. Objective: Vitals: Temp Pulse Resp BP Pulse Ox 97.9 F 90 16 135/65 99 08/13/17 03:52 08/13/17 03:52 08/13/17 03:52 08/13/17 03:52 08/13/17 03:52 Gen: Alert, oriented to self only Left hip: Incision C/D/I with mara in place. + ecchymosis and mild edema, no erythema. Thigh soft, min TTP. +f/e at ankles, N/V intact Labs: Laboratory Results - last 24 hr 08/13/1718 08/13/17 05:23 05:23 07:29 WBC 3.1 L RBC 2.29 L Hgb 7.3 L Hct 22 L MCV 94 MCH 32 H MCHC 34 RDW 14 Plt Count 98 L MPV 8 Sodium 137 Potassium TNP 3.6 Chloride 106 Carbon Dioxide 23 Anion Gap 8 BUN 13 Creatinine 0.44 L Est GFR ( Amer) 175.6 Est GFR (Non-Af Amer) 136.6 BUN/Creatinine Ratio 29.5 H Glucose 102 H Calcium 8.1 L Assessment: POD #3 Left hip hemiarthroplasty Plan: Cont PT/OT, likely need [facility] or possible NH placement on d/c if confusion persists Heparin for DVT ppx while in the hospital, Lovenox on d/c
[2017-08-13] MEDS ORDERED: Heparin VIAL(*) 5000 UNITS/ML VIAL (FIVE THOUSAND) SUBCUT SCH (09:00)
[2017-08-13] MEDS: PTO: Balsalazide (NF) 750 MG CAP PO SCH ×3 (09:34→21:00)
[2017-08-13] MEDS: Docusate CAP* 100 MG PO SCH ×2 (09:43→21:00)
[2017-08-13] MEDS: Heparin VIAL(*) 5000 UNITS/ML VIAL (FIVE THOUSAND) SUBCUT SCH ×2 (09:43→22:10)
[2017-08-13] MEDS: Pantoprazole IV* 40 MG IV SCH (09:43)
[2017-08-13] MEDS: oxyCODONE TAB* 5 MG TAB PO PRN (09:46)
--- NOTE | 2017-08-13 12:51 | PN ---
Subjective Date of Service: 08/13/17 Interval History: Patient seen and examined at bedside. Denies fever, chills, shortness of breath , chest discomfort, N/V/D. Pt continues to have significant confusion, according to the the son she is not this confused at home. Pt continues to require a phil lift to get up. Son would like to take her home, but is willing to consider rehab. Family History: Unchanged from Admission Social History: Unchanged from Admission Past Medical History: Unchanged from Admission Objective Active Medications: Acetaminophen (Tylenol Tab*) 975 mg PO Q6H MINESH Albuterol (Ventolin 2.5 Mg/3 Ml Neb.Aminah*) 2.5 mg INH Q2H PRN Reason: SOB/ WHEEZING Balsalazide (Balsalazide (Nf)) 3,000 mg PO BID MINESH Docusate Sodium (Colace Cap*) 200 mg PO BID MINESH Enoxaparin Sodium (Lovenox(*)) 30 mg SUBCUT Q24H [facility] Fentanyl Citrate (Fentanyl*) 25 mcg IV SLOW PU Q2H PRN Reason: PAIN Heparin Sodium (Porcine) (Heparin Vial(*)) 5,000 units SUBCUT Q12HR [facility] Stop: 08/13/17 21:30 Sodium Chloride (Ns 0.9% 1000 Ml*) 1,000 mls @ 75 mls/hr IV PER RATE [facility] Magnesium Hydroxide (Milk Of Magngagan Liq*) 30 ml PO BEDTIME [facility] Melatonin (Melatonin (Nf)) 3 mg PO BEDTIME PRN; Protocol Reason: Sleep Ondansetron HCl (Zofran Inj*) 4 mg IV Q6H PRN Reason: NAUSEA Oxycodone HCl (Roxycodone Tab*) 10 mg PO Q4H PRN Reason: PAIN Pantoprazole Sodium (Protonix Iv*) 40 mg IV DAILY [facility] Vital Signs - 8 hr 08/13/17 08/13/17 08/13/17 07:48 09:46 12:12 Temperature 98.9 F Pulse Rate 93 88 Respiratory 16 16 14 Rate Blood Pressure 108/64 (mmHg) O2 Sat by Pulse 98 90 Oximetry 08/13/17 12:18 Temperature Pulse Rate Respiratory Rate Blood Pressure 110/52 (mmHg) O2 Sat by Pulse Oximetry Oxygen Devices in Use Now: None Appearance: NAD, sitting up in a chair Ears/Nose/Mouth/Throat: Mucous Membranes Moist Respiratory: Symmetrical Chest Expansion and Respiratory Effort, Clear to Auscultation Cardiovascular: NL Sounds; No Murmurs; No JVD, RRR Abdominal: NL Sounds; No Tenderness; No Distention Extremities: - - 1-2+ left LE Skin: No Rash or Ulcers, - - Ecchymosis to face Neurological: NL Muscle Strength and Tone, - - Alert and Oriented to Self, confused Lines/Tubes/Other Access: Clean, Dry and Intact Peripheral IV - site benign Nutrition: Taking PO's Result Diagrams: 08/13/17 05:23 08/13/17 07:29 Assess/Plan/Problems-Billing Assessment: Ms. Paige is an 82 yo female with PMH significant for ulcerative colitis, HLD, trigeminal neuraliga, left breast CA - S/P chemo and radiation who presented to the emergency room with complaints of left hip pain after a fall at home. - Patient Problems (1) Fracture of left hip Code(s): S72.002A - FRACTURE OF UNSP PART OF NECK OF LEFT FEMUR, INIT SNOMED Code(s): 221198917 Comment: - S/P left hip hemiarthroplasty, POD #2 - Ortho consult, input appreciated - Management per Ortho - OT/PT - Continue pain management (2) Delirium Code(s): R41.0 - DISORIENTATION, UNSPECIFIED SNOMED Code(s): 7885037 Comment: - Suspect post-operative delirium - ? what her baseline is - Continue supportive care (3) Falls Comment: - Frequent falls according to son. (4) Ulcerative colitis Code(s): K51.90 - ULCERATIVE COLITIS, UNSPECIFIED, WITHOUT COMPLICATIONS SNOMED Code(s): 56935960 Comment: - Continue balsalazide. (5) Breast cancer, left Code(s): C50.912 - MALIGNANT NEOPLASM OF UNSPECIFIED SITE OF LEFT FEMALE BREAST SNOMED Code(s): 321583510 Comment: - S/P chemo and radiation (6) HLD (hyperlipidemia) Code(s): E78.5 - HYPERLIPIDEMIA, UNSPECIFIED SNOMED Code(s): 15612098 (7) Trigeminal neuralgia Code(s): G50.0 - TRIGEMINAL NEURALGIA SNOMED Code(s): 91518034 (8) DVT prophylaxis Code(s): QDM3111 - SNOMED Code(s): 770058066 Comment: - SCDs - Heparin Q12H until Tuesday, then Lovenox 30mg daily per Ortho (9) Full code status Code(s): Z78.9 - OTHER SPECIFIED HEALTH STATUS SNOMED Code(s): 382317471 Status and Disposition: Inpatient. Discharge to home when medically stable, suspect she may need rehab at discharge.
[2017-08-13] MEDS: Magnesium Hydroxide LIQ* 30 ML UDC PO SCH ×2 (22:10→22:17)
[2017-08-14] MEDS: Acetaminophen TAB* 325 MG PO SCH (01:00)
[2017-08-14] MEDS: Acetaminophen SUPP* 650 MG SUPP PR SCH ×4 (02:35→19:00)
[2017-08-14 05:21] LABS: Hematocrit 20 % (35-47); Hemoglobin 6.6 g/dl (12.0-16.0); Mean Corpuscular HGB Conc 34 g/dl (31-36); Mean Corpuscular Hemoglobin 32 pg (27-31); Mean Corpuscular Volume 96 fL (80-97); Mean Platelet Volume 7 um3 (7.4-10.4); Platelet Count 105 10^3/ul (150-450); Red Blood Count 2.04 10^6/ul (4.0-5.4); Red Cell Distribution Width 14 % (10.5-15); White Blood Count 3.5 10^3/ul (3.5-10.8)
[2017-08-14 05:36] LABS: EGFR Non-African American 172.1 (>60)
--- NOTE | 2017-08-14 08:11 | PN ---
Subjective Date of Service: 08/14/17 Interval History: Patient seen and examined at bedside. Denies fever, chills, shortness of breath , chest discomfort, N/V/D. Pt continues to have confusion. Phone consent obtained from son Miles Paige for blood transfusion. Family History: Unchanged from Admission Social History: Unchanged from Admission Past Medical History: Unchanged from Admission Objective Active Medications: Acetaminophen (Tylenol Supp*) 650 mg VA Q6H MINESH Albuterol (Ventolin 2.5 Mg/3 Ml Neb.Aminah*) 2.5 mg INH Q2H PRN Reason: SOB/ WHEEZING Balsalazide (Balsalazide (Nf)) 3,000 mg PO BID MINESH Docusate Sodium (Colace Cap*) 200 mg PO BID MINESH Enoxaparin Sodium (Lovenox(*)) 30 mg SUBCUT Q24H [facility] Fentanyl Citrate (Fentanyl*) 25 mcg IV SLOW PU Q2H PRN Reason: PAIN Sodium Chloride (Ns 0.9% 1000 Ml*) 1,000 mls @ 75 mls/hr IV PER RATE [facility] Magnesium Hydroxide (Milk Of Magnesia Liq*) 30 ml PO BEDTIME MINESH Melatonin (Melatonin (Nf)) 3 mg PO BEDTIME PRN; Protocol Reason: Sleep Ondansetron HCl (Zofran Inj*) 4 mg IV Q6H PRN Reason: NAUSEA Oxycodone HCl (Roxycodone Tab*) 10 mg PO Q4H PRN Reason: PAIN Pantoprazole Sodium (Protonix Iv*) 40 mg IV DAILY MINESH Polyethylene Glycol/Electrolytes (Miralax*) 17 gm PO DAILY PRN Reason: CONSTIPATION Vital Signs - 8 hr 08/14/17 08/14/17 08/14/17 03:41 03:58 07:48 Temperature 98.9 F Pulse Rate 91 Respiratory 16 Rate Blood Pressure 109/47 (mmHg) O2 Sat by Pulse 97 97 97 Oximetry Oxygen Devices in Use Now: Nasal Cannula - 1L Appearance: NAD, laying in bed Ears/Nose/Mouth/Throat: Mucous Membranes Moist Respiratory: Symmetrical Chest Expansion and Respiratory Effort, Clear to Auscultation Cardiovascular: NL Sounds; No Murmurs; No JVD, RRR Abdominal: NL Sounds; No Tenderness; No Distention Extremities: No Edema Skin: - - Dressing to left hip clean, dry and intact Neurological: - - Alert and Oriented to Person and Place Lines/Tubes/Other Access: Clean, Dry and Intact Edwards - patent, draining clear yellow urine, Clean, Dry and Intact Peripheral IV - site benign Nutrition: Taking PO's Result Diagrams: 08/14/17 05:11 08/14/17 05:11 Assess/Plan/Problems-Billing Assessment: Ms. Paige is an 82 yo female with PMH significant for ulcerative colitis, HLD, trigeminal neuraliga, left breast CA - S/P chemo and radiation who presented to the emergency room with complaints of left hip pain after a fall at home. - Patient Problems (1) Fracture of left hip Code(s): S72.002A - FRACTURE OF UNSP PART OF NECK OF LEFT FEMUR, INIT SNOMED Code(s): 422168585 Comment: - S/P left hip hemiarthroplasty, POD #3 - Ortho consult, input appreciated - Management per Ortho - OT/PT - Continue pain management (2) Postoperative anemia due to acute blood loss Code(s): D62 - ACUTE POSTHEMORRHAGIC ANEMIA SNOMED Code(s): 39146644176444794 Comment: - Will transfuse 1 unit of PRBCs today - Continue to trend HH (3) Delirium Code(s): R41.0 - DISORIENTATION, UNSPECIFIED SNOMED Code(s): 3641432 Comment: - Suspect post-operative delirium - ? what her baseline is - Continue supportive care (4) Falls Comment: - Frequent falls according to son. (5) Ulcerative colitis Code(s): K51.90 - ULCERATIVE COLITIS, UNSPECIFIED, WITHOUT COMPLICATIONS SNOMED Code(s): 00618630 Comment: - Continue balsalazide. (6) Breast cancer, left Code(s): C50.912 - MALIGNANT NEOPLASM OF UNSPECIFIED SITE OF LEFT FEMALE BREAST SNOMED Code(s): 410946977 Comment: - S/P chemo and radiation (7) HLD (hyperlipidemia) Code(s): E78.5 - HYPERLIPIDEMIA, UNSPECIFIED SNOMED Code(s): 90744048 (8) Trigeminal neuralgia Code(s): G50.0 - TRIGEMINAL NEURALGIA SNOMED Code(s): 35772016 (9) DVT prophylaxis Code(s): XVP3049 - SNOMED Code(s): 210888612 Comment: - SCDs - Lovenox 30mg daily per Ortho (10) Full code status Code(s): Z78.9 - OTHER SPECIFIED HEALTH STATUS SNOMED Code(s): 707623039 Status and Disposition: Inpatient. Discharge to home when medically stable, suspect she may need rehab at discharge.
--- NOTE | 2017-08-14 08:38 | PN ---
Progress Note - Progress Note Date of Service: 08/14/17 SOAP: Subjective: POD#3 Left hip hemiarthroplasty. Pt remains very confused. No c/o pain when asked. Objective: Vitals: Temp Pulse Resp BP Pulse Ox 98.9 F 91 16 109/47 97 08/14/ 03:58 08/14/17 03:58 08/14/17 08:09 08/14/17 03:58 08/14/17 08:09 Gen: Alert, oriented to first name only. NAD at rest Left Hip: Dressing C/D/I, mild ecchymosis and edema to thigh, no erythema. Soft , min ttp. +f/e at ankle and MTPs. N/V intact Labs: Laboratory Results - last 24 hr 08/14/08/14/18 08/14/17 05:06 05:11 05:11 WBC 3.5 RBC 2.04 L Hgb 6.6 L Hct 20 L MCV 96 MCH 32 H MCHC 34 RDW 14 Plt Count 105 L MPV 7 L Sodium 139 Potassium 3.8 Chloride 108 Carbon Dioxide 23 Anion Gap 8 BUN 11 Creatinine 0.36 L Est GFR ( Amer) 221.4 Est GFR (Non-Af Amer) 172.1 BUN/Creatinine Ratio 30.6 H Glucose 90 Calcium 8.0 L Blood Type O Positive Crossmatch See Detail Assessment: POD#3 Left hip hemiarthroplasty Plan: Pt with acute blood loss anemia, to be transfused 1 unit RBCs today per medicine Needs PT/OT, will likely need [facility]/NH placement on d/c if pt remains confused Ortho to continue following
[2017-08-14] MEDS: Polyethylene Glycol 3350* 17 GM PACKET PO PRN (09:23)
[2017-08-14] MEDS: PTO: Balsalazide (NF) 750 MG CAP PO SCH ×2 (09:23→19:43)
[2017-08-14] MEDS: Pantoprazole IV* 40 MG IV SCH (09:24)
[2017-08-14] MEDS: Enoxaparin(*) 30 MG/0.3 ML SYR SUBCUT SCH (09:26)
[2017-08-14] MEDS: Docusate CAP* 100 MG PO SCH ×2 (09:29→19:44)
[2017-08-14] MEDS: NS 0.9% 1000 ML* 1,000 ML IV SCH (12:43)
[2017-08-14] MEDS: Magnesium Hydroxide LIQ* 30 ML UDC PO SCH (22:57)
[2017-08-15] MEDS: Acetaminophen SUPP* 650 MG SUPP PR SCH ×2 (01:34→07:45)
[2017-08-15] MEDS: NS 0.9% 1000 ML* 1,000 ML IV SCH (02:33)
[2017-08-15 05:53] LABS: Hematocrit 22 % (35-47); Hemoglobin 7.6 g/dl (12.0-16.0)
[2017-08-15] MEDS: Polyethylene Glycol 3350* 17 GM PACKET PO PRN (07:35)
[2017-08-15] MEDS: PTO: Balsalazide (NF) 750 MG CAP PO SCH ×2 (07:36→20:51)
[2017-08-15] MEDS: Docusate CAP* 100 MG PO SCH ×2 (07:40→20:50)
[2017-08-15] MEDS: oxyCODONE TAB* 5 MG TAB PO PRN (07:41)
[2017-08-15] MEDS: Pantoprazole IV* 40 MG IV SCH (07:42)
[2017-08-15] MEDS: Enoxaparin(*) 30 MG/0.3 ML SYR SUBCUT SCH (07:43)
--- NOTE | 2017-08-15 10:54 | PN ---
Progress Note - Progress Note Date of Service: 08/15/17 SOAP: Subjective: []Patient seen at bedside. She feels well and denies LLE pain, CP, SOB, dizziness or fatigue. She confirms continued confusion. Objective: [] Laboratory Last Values WBC 3.5 10^3/ul (3.5-10.8) 08/14/17 05:11 RBC 2.04 10^6/ul (4.0-5.4) L 08/14/17 05:11 Hgb 7.6 g/dl (12.0-16.0) L 08/15/17 05:36 Hct 22 % (35-47) L 08/15/17 05:36 MCV 96 fL (80-97) 08/14/17 05:11 MCH 32 pg (27-31) H 08/14/17 05:11 MCHC 34 g/dl (31-36) 08/14/17 05:11 RDW 14 % (10.5-15) 08/14/17 05:11 Plt Count 105 10^3/ul (150-450) L 08/14/17 05:11 MPV 7 um3 (7.4-10.4) L 08/14/17 05:11 Neut % (Auto) 85.2 % (38-83) H 08/11/17 00:15 Lymph % (Auto) 7.7 % (25-47) L 08/11/17 00:15 [place] % (Auto) 6.7 % (1-9) 08/11/17 00:15 Eos % (Auto) 0.2 % (0-6) 08/11/17 00:15 Baso % (Auto) 0.2 % (0-2) 08/11/17 00:15 Absolute Neuts (auto) 6.6 10^3/ul (1.5-7.7) 08/11/17 00:15 Absolute Lymphs (auto) 0.6 10^3/ul (1.0-4.8) L 08/11/17 00:15 Absolute Monos (auto) 0.5 10^3/ul (0-0.8) 08/11/17 00:15 Absolute Eos (auto) 0 10^3/ul (0-0.6) 08/11/17 00:15 Absolute Basos (auto) 0 10^3/ul (0-0.2) 08/11/17 00:15 Absolute Nucleated RBC 0 10^3/ul 08/11/17 00:15 Nucleated RBC % 0.1 08/11/17 00:15 INR (Anticoag Therapy) 0.94 (0.77-1.02) 08/11/17 00:15 APTT 32.3 seconds (26.0-36.3) 08/11/17 20:11 Sodium 139 mmol/L (133-145) 08/14/17 05:11 Potassium 3.8 mmol/L (3.5-5.0) 08/14/17 05:11 Chloride 108 mmol/L (101-111) 08/14/17 05:11 Carbon Dioxide 23 mmol/L (22-32) 08/14/17 05:11 Anion Gap 8 mmol/L (2-11) 08/14/17 05:11 BUN 11 mg/dL (6-24) 08/14/17 05:11 Creatinine 0.36 mg/dL (0.51-0.95) L 08/14/17 05:11 Est GFR ( Amer) 221.4 (>60) 08/14/17 05:11 Est GFR (Non-Af Amer) 172.1 (>60) 08/14/17 05:11 BUN/Creatinine Ratio 30.6 (8-20) H 08/14/17 05:11 Glucose 90 mg/dL (70-100) 08/14/17 05:11 Calcium 8.0 mg/dL (8.6-10.3) L 08/14/17 05:11 Total Bilirubin 0.60 mg/dL (0.2-1.0) 08/11/17 00:15 AST 23 U/L (13-39) 08/11/17 00:15 ALT 14 U/L (7-52) 08/11/17 00:15 Alkaline Phosphatase 74 U/L (34-104) 08/11/17 00:15 Total Protein 6.7 g/dL (6.4-8.9) 08/11/17 00:15 Albumin 4.2 g/dL (3.2-5.2) 08/11/17 00:15 Globulin 2.5 g/dL (2-4) 08/11/17 00:15 Albumin/Globulin Ratio 1.7 (1-3) 08/11/17 00:15 Urine Color Yellow 08/11/17 10:00 Urine Appearance Clear 08/11/17 10:00 Urine pH 7.0 (5-9) 08/11/17 10:00 Ur Specific [place] 1.015 (1.010-1.030) 08/11/17 10:00 Urine Protein Negative (Negative) 08/11/17 10:00 Urine Ketones Trace (Negative) H 08/11/17 10:00 Urine Blood Negative (Negative) 08/11/17 10:00 Urine Nitrate Negative (Negative) 08/11/17 10:00 Urine Bilirubin Negative (Negative) 08/11/17 10:00 Urine Urobilinogen Negative (Negative) 08/11/17 10:00 Ur Leukocyte Esterase Negative (Negative) 08/11/17 10:00 Urine Glucose Negative (Negative) 08/11/17 10:00 Blood Type O Positive 08/14/17 05:06 Antibody Screen Negative 08/14/17 05:06 Crossmatch See Detail 08/14/17 05:06 Vital Signs Temp 98.2 F 08/15/17 07:28 Pulse 84 08/15/17 07:28 Resp 16 08/15/17 10:09 BP 133/58 08/15/17 07:28 Pulse Ox 97 08/15/17 07:28 Intake & Output 08/14/17 08/15/17 08/15/17 18:59 06:59 18:59 Intake Total 1447 1236 Output Total 400 625 325 Balance 1047 611 -325 Intake: IV Fluids 938 986 NS (0.9%) 938 986 Oral 200 250 Packed Cells 309 Output: Edwards 400 625 325 Other: Estimated Void Medium # Bowel Movements 1 1 Estimated Stool Amount Small Small Small # Voids 1 General: Well appearing, NAD. A&O x 2- alert to person and place, not to time. Aware of reason she is in the hospital but does not recall falling. LLE: Dressing changed. Incision CDI without erythema or discharge. DF/PF intact. 2+ DP BL LE: Calves supple and nontender without erythema, edema or palpable cords. Assessment: []POD#4 Left hip hemiarthroplasty Acute Bloodloss Anemia Plan: Needs PT/OT, will likely need LAZARA/NH placement on DC if pt remains confused If DC's to rehab will remain on lovenox for 30 days, if home discuss with Dr. Dickens WBAT Ortho to continue following
[2017-08-15] MEDS: Acetaminophen TAB* 325 MG PO SCH ×2 (14:20→20:49)
--- NOTE | 2017-08-15 20:38 | PN ---
Subjective Date of Service: 08/15/17 Interval History: Patient seen and examined at bedside. Denies fever, chills, shortness of breath , chest discomfort, N/V/D. Pt's confusion continues to improve. Family History: Unchanged from Admission Social History: Unchanged from Admission Past Medical History: Unchanged from Admission Objective Active Medications: Acetaminophen (Tylenol Tab*) 975 mg PO Q6H MINESH Albuterol (Ventolin 2.5 Mg/3 Ml Neb.Aminah*) 2.5 mg INH Q2H PRN Reason: SOB/ WHEEZING Balsalazide (Balsalazide (Nf)) 3,000 mg PO BID MINESH Docusate Sodium (Colace Cap*) 200 mg PO BID MINESH Enoxaparin Sodium (Lovenox(*)) 30 mg SUBCUT Q24H MINESH Fentanyl Citrate (Fentanyl*) 25 mcg IV SLOW PU Q2H PRN Reason: PAIN Sodium Chloride (Ns 0.9% 1000 Ml*) 1,000 mls @ 75 mls/hr IV PER RATE MINESH Magnesium Hydroxide (Milk Of Magnesia Liq*) 30 ml PO BEDTIME MINESH Melatonin (Melatonin (Nf)) 3 mg PO BEDTIME PRN; Protocol Reason: Sleep Ondansetron HCl (Zofran Inj*) 4 mg IV Q6H PRN Reason: NAUSEA Oxycodone HCl (Roxycodone Tab*) 10 mg PO Q4H PRN Reason: PAIN Pantoprazole Sodium (Protonix Iv*) 40 mg IV DAILY MINESH Polyethylene Glycol/Electrolytes (Miralax*) 17 gm PO DAILY PRN Reason: CONSTIPATION Vital Signs - 8 hr 08/15/17 08/15/17 08/15/17 15:24 17:07 20:00 Temperature 98.0 F Pulse Rate 85 Respiratory 16 17 Rate Blood Pressure 139/57 (mmHg) O2 Sat by Pulse 93 93 Oximetry 08/15/17 20:06 Temperature 97.7 F Pulse Rate 88 Respiratory 16 Rate Blood Pressure 132/72 (mmHg) O2 Sat by Pulse 93 Oximetry Oxygen Devices in Use Now: None Appearance: NAD, laying in bed Respiratory: Symmetrical Chest Expansion and Respiratory Effort, Clear to Auscultation Cardiovascular: NL Sounds; No Murmurs; No JVD, RRR Abdominal: NL Sounds; No Tenderness; No Distention Extremities: - - Left LE edema Skin: No Rash or Ulcers, - - Dressing to left hip clean, dry and intact. Areas of ecchymosis to face healing Neurological: - - Alert and Oriented to Person and Place Lines/Tubes/Other Access: Clean, Dry and Intact Peripheral IV - site benign Nutrition: Taking PO's Result Diagrams: 08/15/17 05:36 08/14/17 05:11 Assess/Plan/Problems-Billing Assessment: Ms. Paige is an 82 yo female with PMH significant for ulcerative colitis, HLD, trigeminal neuraliga, left breast CA - S/P chemo and radiation who presented to the emergency room with complaints of left hip pain after a fall at home. - Patient Problems (1) Fracture of left hip Code(s): S72.002A - FRACTURE OF UNSP PART OF NECK OF LEFT FEMUR, INIT SNOMED Code(s): 690919298 Comment: - S/P left hip hemiarthroplasty, POD #4 - Ortho consult, input appreciated - Management per Ortho - OT/PT - Continue pain management (2) Postoperative anemia due to acute blood loss Code(s): D62 - ACUTE POSTHEMORRHAGIC ANEMIA SNOMED Code(s): 59909526334754406 Comment: - Received 1 unit of PRBCs 08/14 - Continue to trend HH (3) Delirium Code(s): R41.0 - DISORIENTATION, UNSPECIFIED SNOMED Code(s): 9947257 Comment: - Suspect post-operative delirium, improving - ? what her baseline is - Continue supportive care (4) Falls Comment: - Frequent falls according to son. (5) Ulcerative colitis Code(s): K51.90 - ULCERATIVE COLITIS, UNSPECIFIED, WITHOUT COMPLICATIONS SNOMED Code(s): 43657503 Comment: - Continue balsalazide. (6) Breast cancer, left Code(s): C50.912 - MALIGNANT NEOPLASM OF UNSPECIFIED SITE OF LEFT FEMALE BREAST SNOMED Code(s): 217446541 Comment: - S/P chemo and radiation (7) HLD (hyperlipidemia) Code(s): E78.5 - HYPERLIPIDEMIA, UNSPECIFIED SNOMED Code(s): 30889483 (8) Trigeminal neuralgia Code(s): G50.0 - TRIGEMINAL NEURALGIA SNOMED Code(s): 29625931 (9) DVT prophylaxis Code(s): SUN0464 - SNOMED Code(s): 888192429 Comment: - SCDs - Lovenox 30mg daily per Ortho (10) Full code status Code(s): Z78.9 - OTHER SPECIFIED HEALTH STATUS SNOMED Code(s): 628796253 Status and Disposition: Inpatient. Discharge to home when medically stable, suspect she will need rehab at discharge. Pt and Son have accepted a bed offer at [facility], pending insurance authorization.
[2017-08-15] MEDS: Magnesium Hydroxide LIQ* 30 ML UDC PO SCH (20:51)
[2017-08-16] MEDS: Acetaminophen TAB* 325 MG PO SCH ×2 (03:20→08:38)
[2017-08-16 05:22] LABS: Hematocrit 27 % (35-47); Hemoglobin 9.2 g/dl (12.0-16.0)
[2017-08-16] MEDS: PTO: Balsalazide (NF) 750 MG CAP PO SCH (08:36)
[2017-08-16] MEDS: Pantoprazole IV* 40 MG IV SCH (08:38)
[2017-08-16] MEDS: Docusate CAP* 100 MG PO SCH (08:39)
[2017-08-16] MEDS: Enoxaparin(*) 30 MG/0.3 ML SYR SUBCUT SCH (08:39)
--- NOTE | 2017-08-16 09:14 | PN ---
Progress Note - Progress Note Date of Service: 08/16/17 SOAP: Subjective: []Patient seen at bedside. She is well appearing, NAD. Taking pills from nursing staff. Denies LLE pain. Denies SOB, CP, Nausea. Objective: []General: Well appearing, NAD. Wet with urine LLE: DF/PF intact. 2+ DP. Bedding and clothing changed and depends placed by nursing staff then dressing changed: incision washed with soap and water prior to redressing. Incision CDI without erythema or discharge. BL LE: Calves supple and nontender without erythema, edema or palpable cords. Vital Signs Temp 97.8 F 08/16/17 03:40 Pulse 86 08/16/17 03:40 Resp 16 08/16/17 03:40 BP 149/66 08/16/17 03:40 Pulse Ox 94 08/16/17 03:40 Intake & Output 08/15/17 08/16/17 08/16/17 18:59 06:59 18:59 Intake Total 1055 620 Output Total 325 0 Balance 730 620 Intake: IV Fluids 935 NS (0.9%) 935 Oral 120 620 Output: Urine 0 Edwards 325 Other: Estimated Void Large Large # Bowel Movements 0 Estimated Stool Amount Small # Voids 1 1 Laboratory Last Values WBC 3.5 10^3/ul (3.5-10.8) 08/14/17 05:11 RBC 2.04 10^6/ul (4.0-5.4) L 08/14/17 05:11 Hgb 9.2 g/dl (12.0-16.0) L 08/16/17 04:57 Hct 27 % (35-47) L 08/16/17 04:57 MCV 96 fL (80-97) 08/14/17 05:11 MCH 32 pg (27-31) H 08/14/17 05:11 MCHC 34 g/dl (31-36) 08/14/17 05:11 RDW 14 % (10.5-15) 08/14/17 05:11 Plt Count 105 10^3/ul (150-450) L 08/14/17 05:11 MPV 7 um3 (7.4-10.4) L 08/14/17 05:11 Neut % (Auto) 85.2 % (38-83) H 08/11/17 00:15 Lymph % (Auto) 7.7 % (25-47) L 08/11/17 00:15 [place] % (Auto) 6.7 % (1-9) 08/11/17 00:15 Eos % (Auto) 0.2 % (0-6) 08/11/17 00:15 Baso % (Auto) 0.2 % (0-2) 08/11/17 00:15 Absolute Neuts (auto) 6.6 10^3/ul (1.5-7.7) 08/11/17 00:15 Absolute Lymphs (auto) 0.6 10^3/ul (1.0-4.8) L 08/11/17 00:15 Absolute Monos (auto) 0.5 10^3/ul (0-0.8) 08/11/17 00:15 Absolute Eos (auto) 0 10^3/ul (0-0.6) 08/11/17 00:15 Absolute Basos (auto) 0 10^3/ul (0-0.2) 08/11/17 00:15 Absolute Nucleated RBC 0 10^3/ul 08/11/17 00:15 Nucleated RBC % 0.1 08/11/17 00:15 INR (Anticoag Therapy) 0.94 (0.77-1.02) 08/11/17 00:15 APTT 32.3 seconds (26.0-36.3) 08/11/17 20:11 Sodium 139 mmol/L (133-145) 08/14/17 05:11 Potassium 3.8 mmol/L (3.5-5.0) 08/14/17 05:11 Chloride 108 mmol/L (101-111) 08/14/17 05:11 Carbon Dioxide 23 mmol/L (22-32) 08/14/17 05:11 Anion Gap 8 mmol/L (2-11) 08/14/17 05:11 BUN 11 mg/dL (6-24) 08/14/17 05:11 Creatinine 0.36 mg/dL (0.51-0.95) L 08/14/17 05:11 Est GFR ( Amer) 221.4 (>60) 08/14/17 05:11 Est GFR (Non-Af Amer) 172.1 (>60) 08/14/17 05:11 BUN/Creatinine Ratio 30.6 (8-20) H 08/14/17 05:11 Glucose 90 mg/dL (70-100) 08/14/17 05:11 Calcium 8.0 mg/dL (8.6-10.3) L 08/14/17 05:11 Total Bilirubin 0.60 mg/dL (0.2-1.0) 08/11/17 00:15 AST 23 U/L (13-39) 08/11/17 00:15 ALT 14 U/L (7-52) 08/11/17 00:15 Alkaline Phosphatase 74 U/L (34-104) 08/11/17 00:15 Total Protein 6.7 g/dL (6.4-8.9) 08/11/17 00:15 Albumin 4.2 g/dL (3.2-5.2) 08/11/17 00:15 Globulin 2.5 g/dL (2-4) 08/11/17 00:15 Albumin/Globulin Ratio 1.7 (1-3) 08/11/17 00:15 Urine Color Yellow 08/11/17 10:00 Urine Appearance Clear 08/11/17 10:00 Urine pH 7.0 (5-9) 08/11/17 10:00 Ur Specific [place] 1.015 (1.010-1.030) 08/11/17 10:00 Urine Protein Negative (Negative) 08/11/17 10:00 Urine Ketones Trace (Negative) H 08/11/17 10:00 Urine Blood Negative (Negative) 08/11/17 10:00 Urine Nitrate Negative (Negative) 08/11/17 10:00 Urine Bilirubin Negative (Negative) 08/11/17 10:00 Urine Urobilinogen Negative (Negative) 08/11/17 10:00 Ur Leukocyte Esterase Negative (Negative) 08/11/17 10:00 Urine Glucose Negative (Negative) 08/11/17 10:00 Blood Type O Positive 08/14/17 05:06 Antibody Screen Negative 08/14/17 05:06 Crossmatch See Detail 08/14/17 05:06 Assessment: []POD#5 Left hip hemiarthroplasty Acute Bloodloss Anemia Plan: PT/OT WBAT Accepted bed offer at [facility], awaiting insurance approval Continue lovenox for 30 days post-op Ortho to continue following
[2017-08-16 12:12] VITALS: BP 141/62
--- NOTE | 2017-08-16 13:17 | PN ---
Subjective Date of Service: 08/16/17 Interval History: c/o pain to left hip, Denies abd pain, N/V/D. Denies chest pain or shortness of breath. Family History: Unchanged from Admission Social History: Unchanged from Admission Past Medical History: Unchanged from Admission Objective Active Medications: Acetaminophen (Tylenol Tab*) 975 mg PO Q6H [facility] Last Admin: 08/16/17 08:38 Dose: 975 mg Albuterol (Ventolin 2.5 Mg/3 Ml Neb.Aminah*) 2.5 mg INH Q2H PRN PRN Reason: SOB/WHEEZING Balsalazide (Balsalazide (Nf)) 3,000 mg PO BID [facility] Last Admin: 08/16/17 08:36 Dose: 3,000 mg Docusate Sodium (Colace Cap*) 200 mg PO BID [facility] Last Admin: 08/16/17 08:39 Dose: 200 mg Enoxaparin Sodium (Lovenox(*)) 30 mg SUBCUT Q24H [facility] Last Admin: 08/16/17 08:39 Dose: 30 mg Fentanyl Citrate (Fentanyl*) 25 mcg IV SLOW PU Q2H PRN PRN Reason: PAIN Last Admin: 08/11/17 01:32 Dose: 25 mcg Sodium Chloride (Ns 0.9% 1000 Ml*) 1,000 mls @ 75 mls/hr IV PER RATE [facility] Last Admin: 08/15/17 02:33 Dose: 75 mls/hr Magnesium Hydroxide (Milk Of Magnesia Liq*) 30 ml PO BEDTIME [facility] Last Admin: 08/15/17 20:51 Dose: Not Given Melatonin (Melatonin (Nf)) 3 mg PO BEDTIME PRN; Protocol PRN Reason: Sleep Ondansetron HCl (Zofran Inj*) 4 mg IV Q6H PRN PRN Reason: NAUSEA Last Admin: 08/11/17 09:22 Dose: 4 mg Oxycodone HCl (Roxycodone Tab*) 10 mg PO Q4H PRN PRN Reason: PAIN Last Admin: 08/15/17 07:41 Dose: 10 mg Pantoprazole Sodium (Protonix Iv*) 40 mg IV DAILY [facility] Last Admin: 08/16/17 08:38 Dose: 40 mg Polyethylene Glycol/Electrolytes (Miralax*) 17 gm PO DAILY PRN PRN Reason: CONSTIPATION Last Admin: 08/15/17 07:35 Dose: 17 gm Vital Signs - 8 hr 08/16/17 08/16/17 08/16/17 07:49 08:30 11:24 Temperature 97.9 F 98.2 F Pulse Rate 82 83 Respiratory 17 16 17 Rate Blood Pressure 146/65 141/62 (mmHg) O2 Sat by Pulse 95 94 Oximetry 08/16/17 12:00 Temperature Pulse Rate 82 Respiratory 16 Rate Blood Pressure (mmHg) O2 Sat by Pulse 95 Oximetry Oxygen Devices in Use Now: None Appearance: awake, alert, appears comfortable resting in bed Eyes: No Scleral Icterus Ears/Nose/Mouth/Throat: Clear Oropharnyx, Mucous Membranes Moist Neck: NL Appearance and Movements; NL JVP, Trachea Midline Respiratory: Symmetrical Chest Expansion and Respiratory Effort, Clear to Auscultation Cardiovascular: NL Sounds; No Murmurs; No JVD, RRR, No Edema Abdominal: NL Sounds; No Tenderness; No Distention Extremities: No Edema, No Clubbing, Cyanosis Skin: No Rash or Ulcers Neurological: Alert and Oriented x 3 - some confusion to time, NL Sensation Nutrition: Taking PO's Result Diagrams: 08/16/17 04:57 08/14/17 05:11 Assess/Plan/Problems-Billing Assessment: Ms. Paige is an 82 yo female with PMH significant for ulcerative colitis, HLD, trigeminal neuraliga, left breast CA - S/P chemo and radiation who presented to the emergency room with complaints of left hip pain after a fall at home. - Patient Problems (1) Delirium Current Visit: Yes Status: Acute Code(s): R41.0 - DISORIENTATION, UNSPECIFIED SNOMED Code(s): 2627137 Comment: - Suspect post-operative delirium, improving - ? what her baseline is - Continue supportive care (2) Fracture of left hip Current Visit: Yes Status: Acute Code(s): S72.002A - FRACTURE OF UNSP PART OF NECK OF LEFT FEMUR, INIT SNOMED Code(s): 642896457 Comment: - S/P left hip hemiarthroplasty, POD #5 - Ortho consult, input appreciated - Management per Ortho - OT/PT - mara to be removed 08/22/17 - Continue pain management (3) Postoperative anemia due to acute blood loss Current Visit: Yes Status: Acute Code(s): D62 - ACUTE POSTHEMORRHAGIC ANEMIA SNOMED Code(s): 94090071531501498 Comment: - Received 1 unit of PRBCs 08/14 - Continue to trend HH stable (4) Breast cancer, left Current Visit: No Status: Chronic Code(s): C50.912 - MALIGNANT NEOPLASM OF UNSPECIFIED SITE OF LEFT FEMALE BREAST SNOMED Code(s): 039003034 Comment: - S/P chemo and radiation (5) Falls Current Visit: No Status: Chronic Comment: - Frequent falls according to son. (6) HLD (hyperlipidemia) Current Visit: No Status: Chronic Code(s): E78.5 - HYPERLIPIDEMIA, UNSPECIFIED SNOMED Code(s): 48388304 (7) Trigeminal neuralgia Current Visit: No Status: Chronic Code(s): G50.0 - TRIGEMINAL NEURALGIA SNOMED Code(s): 13970105 Comment: (8) Ulcerative colitis Current Visit: No Status: Chronic Code(s): K51.90 - ULCERATIVE COLITIS, UNSPECIFIED, WITHOUT COMPLICATIONS SNOMED Code(s): 97561924 Comment: - Continue balsalazide. (9) DVT prophylaxis Current Visit: Yes Status: Acute Code(s): YXM8985 - SNOMED Code(s): 459748517 Comment: - SCDs - Lovenox 30mg daily per Ortho for 25 more days end on 09/09/17 (10) Full code status Current Visit: Yes Status: Acute Code(s): Z78.9 - OTHER SPECIFIED HEALTH STATUS SNOMED Code(s): 725909022 Status and Disposition: rehab at discharge. Pt and Son have accepted a bed offer at [facility], will go to [facility] today Activity as tolerated WBAT NO crossing legs Lovenox 30 mg SubQ daily for 25 more days last dose 09/09/[address] Dickens in 1 month
--- NOTE | 2017-08-17 06:32 | DS ---
CC: Dr. Cosme; Dr. Jayden Murcia * DISCHARGE SUMMARY: DATE OF ADMISSION: 08/10/17 DATE OF DISCHARGE: 08/16/17 ATTENDING PHYSICIAN: Sabine Daniel DO * (dictated by La Nielson NP). PRIMARY DIAGNOSIS: Left femoral neck fracture. SECONDARY DIAGNOSES: 1. Falls. 2. Ulcerative colitis. 3. Hyperlipidemia. 4. History of trigeminal neuralgia. 5. History of left breast invasive ductal carcinoma. STUDIES WHILE IN THE HOSPITAL: She had an x-ray of her hip and pelvis, which showed subcapital fracture of the left femur. She had a chest x-ray on 08/10/17 , which showed no active disease. She had a repeat pelvis x-ray postsurgical x- ray on 08/11/17, left hip hemiarthroplasty in the satisfactory position. DISCHARGE MEDICATIONS: 1. New medication is Lovenox 30 mg subcu daily for 25 more days, last dose will be 09/09/17. 2. She can have acetaminophen 975 mg p.o. q.6 hours as needed for pain. 3. Balsalazide 750 mg cap, 3000 mg p.o. b.i.d. 4. Colace 200 mg p.o. b.i.d. 5. Milk of magnesium 30 mg p.o. at bedtime. 6. Oxycodone 10 mg p.o. q.4 hours as needed for pain. 7. MiraLAX 17 g packet p.o. daily. HISTORY OF PRESENT ILLNESS AND HOSPITAL COURSE: Ms. Paige is an 82-year-old female with a history of ulcerative colitis, hyperlipidemia, and breast CA, who has a longstanding history of falls. She is here tonight after such a fall witnessed by her son, states that she got up stating here I go and fell to the floor which is her typical. She denies any chest pain or shortness of breath. She denies any nausea, vomiting, or lightheadedness or spinning. There was no head injury or loss of consciousness at the time of this fall. She only complained of left hip pain and had an x-ray which confirmed a left femoral neck fracture. She is noted to have periorbital and nasal facial ecchymosis from a fall Tuesday, for which she was not evaluated. She denies any neck pain or any other issues. The following history has been evaluated by Neurology without definite findings per patient and family. While in the hospital she was treated by Dr. Dickens, who did a left hemiarthroplasty of the left hip. She tolerated the procedure well. She is doing well post-operatively. At this time, she will be transferred to [facility] for further physical therapy and rehabilitation, strength rebuilding. Ms. Paige is stable for discharge to [facility] today. Vital signs are as follows. Temperature was 98.2, heart rate was 83, respirations were 17, O2 saturation was 94%, blood pressure was 141/62. DISCHARGE PLAN: Ms. Paige will be discharged to [facility]. 1. Weightbearing as tolerated. 2. She may continue her regular soft diet. 3. No . 4. She will continue Lovenox 30 mg subcu daily for 25 more days. 5. Follow up with Dr. Dickens in one month. 6. [place] are to be removed in 7 days. 7. Apply dry dressing daily, wash with mild soap and water. Wash for signs of infection, redness, edema, or drainage from the incision site. The patient has been asked to return to the emergency room with any chest pain or shortness of breath. This is a summary of her medical hospital stay. For further details, please see the entire medical record. TIME SPENT: Time spent on this discharge was approximately 60 minutes, greater than half the time was spent with the patient discussing her discharge plans and instructions, which were reviewed with both the son and the patient. CONDITION ON DISCHARGE: Stable. LA NIELSON, ÁNGEL [id number]/[facility] #: [id number] ROBERT
== END 2017-08-16 14:30 | DRG 470 ==
LOC: ED 21:44 → SSU 23:44
PROVIDERS: ADMIT Hospitalist; ATTEND Orthopaedic Surgery
PROC: 0SRS0JA Replacement of Left Hip Joint, Femoral Surface with Synthetic Substitute, Uncemented, Open Approach (ICD-10-PCS; 2017-08-11)
PROC: 30233N1 Transfusion of Nonautologous Red Blood Cells into Peripheral Vein, Percutaneous Approach (ICD-10-PCS; principal; 2017-08-12)
DX: S72.012A Unspecified intracapsular fracture of left femur, initial encounter for closed fracture (principal); K51.90 Ulcerative colitis, unspecified, without complications; D62 Acute posthemorrhagic anemia; S72.002A Fracture of unspecified part of neck of left femur, initial encounter for closed fracture; E78.5 Hyperlipidemia, unspecified; G50.0 Trigeminal neuralgia; W19.XXXA Unspecified fall, initial encounter; F32.9 Major depressive disorder, single episode, unspecified; R40.2412 Glasgow coma scale score 13-15, at arrival to emergency department; R29.6 Repeated falls; G25.0 Essential tremor; R00.0 Tachycardia, unspecified; R41.0 Disorientation, unspecified; S00.83XA Contusion of other part of head, initial encounter; Z85.3 Personal history of malignant neoplasm of breast; Z91.81 History of falling; Z92.21 Personal history of antineoplastic chemotherapy; Z92.3 Personal history of irradiation; Z88.0 Allergy status to penicillin; Z90.710 Acquired absence of both cervix and uterus; Y92.009 Unspecified place in unspecified non-institutional (private) residence as the place of occurrence of the external cause; Z98.42 Cataract extraction status, left eye; Z97.4 Presence of external hearing-aid; Z85.828 Personal history of other malignant neoplasm of skin; Z87.891 Personal history of nicotine dependence
CPT/HCPCS: 36415; 71045; 72170; 80048; 80053; 81003; 85014; 85018; 85025; 85027; 85610; 85730; 86850; 86900; 86901; 86922; 88305; 88311; 93005; 96372; 99284; A9270-GY; C1776; J0690; J1644; J1650; J2250; J2405; J2704; J2795; J3010; P9040

== ENCOUNTER 2017-10-31 13:36 | Emergency (ER) | payer MEDICARE ==
[2017-10-31 14:21] LABS: Hematocrit 41 % (35-47); Hemoglobin 13.5 g/dl (12.0-16.0); Mean Corpuscular HGB Conc 33 g/dl (31-36); Mean Corpuscular Hemoglobin 30 pg (27-31); Mean Corpuscular Volume 89 fL (80-97); Mean Platelet Volume 7.6 um3 (7.4-10.4); Platelet Count 208 10^3/ul (150-450); Red Blood Count 4.57 10^6/ul (4.0-5.4); Red Cell Distribution Width 13 % (10.5-15); White Blood Count 6.9 10^3/ul (3.5-10.8)
[2017-10-31 14:24] LABS: ABS Basophils 0 10^3/ul (0-0.2); ABS Eosinophils 0.1 10^3/ul (0-0.6); ABS Lymphocytes 1.2 10^3/ul (1.0-4.8); ABS Monocytes 0.8 10^3/ul (0-0.8); ABS Neutrophils 4.9 10^3/ul (1.5-7.7); ABS Nucleated RBC 0 10^3/ul; Eosinophil % 1.2 % (0-6); Lymphocyte % 16.7 % (25-47); Nucleated Red Blood Cells % 0
[2017-10-31 14:49] LABS: EGFR Non-African American 120.6 (>60)
--- NOTE | 2017-10-31 15:02 | RAD ---
INDICATION: Weakness COMPARISON: August 10, 2017 TECHNIQUE: AP seated and seated lateral views were obtained. FINDINGS: Bones/Soft Tissues: There are no acute bony findings. There clips in left axilla Cardiomediastinal: The cardiomediastinal silhouette is normal. Lungs: There are no infiltrates. Pleura: There are no pleural effusions. Other: None IMPRESSION: NO ACTIVE DISEASE.
--- NOTE | 2017-10-31 15:05 | RAD ---
INDICATION: Left hip pain. 3 months status post left hip arthroplasty COMPARISON: August 11, 2017 TECHNIQUE: An AP view of the pelvis and AP views of the hip in neutral and abducted position were obtained FINDINGS: Bones: There are no acute bony findings. Joint spaces: The right hip joint space is preserved. There is no acute change. There is left hip arthroplasty. The prosthesis appears normally seated. There is no evidence of hardware failure. SI joints/symphysis: The SI joints and symphysis are intact. Other: None IMPRESSION: LEFT HIP ARTHROPLASTY. NO ACUTE FINDINGS.
[2017-10-31 15:12] LABS: Urine Appearance Turbid; Urine Blood Negative (Negative); Urine Color Amber; Urine Ketones Negative (Negative); Urine Protein 1+(30 mg/dL) (Negative); Urine Specific Gravity 1.019 (1.010-1.030); Urine Urobilinogen Negative (Negative)
[2017-10-31 16:24] VITALS: BP 116/76
--- NOTE | 2017-11-02 11:05 | PN ---
Progress Note - Progress Note Date of Service: 11/02/17 Note: Patient's urinalysis grew enterococcus greater than 100,000. Spoke with caregiver. placed Macrobid 100 mg twice a day 7 days
--- NOTE | 2017-11-02 18:29 | ED ---
Leonel Bryan Angela, scribed for Jayson Rodriguez MD on 10/31/17 at 1425 . Lower Extremity - HPI Summary HPI Summary: This pt is a 82 y/o female, accompanied by her son, presenting to [facility] via EMS for possible pneumonia and elevated blood pressure. Son reports the pt was in [facility] of rehab of partial left hip replacement (done on 08/10/[address] Dickens). Son checked the pt out of [facility] 3 days ago. Visiting nurses came today and took her vitals and listened to her lungs. Per son, visiting RN reported she had a concern for possible pneumonia and requested to take her to the hospital. Pt denies fever, chills, cough, SOB. Son is also concerned for possible fall pt may have had while staying at [facility]. Pt notes her blood pressure is usually around 120/70 and today it was 140/80. Son helps the pt with rehab exercises at home. - History of Current Complaint Chief Complaint: EDGeneral Stated Complaint: HIGH BP Time Seen by Provider: 10/31/17 13:43 Hx Obtained From: Patient, Family/Gas Pump Attendant - Son Mechanism Of Injury: Other - s/p partial replacement of left hip. Onset of Pain: Days Onset/Duration: Still Present Severity Currently: Mild Pain Intensity: 3 Pain Scale Used: 0-10 Numeric Timing: Constant Location: Is Discrete @ - left hip Associated Signs And Symptoms: Positive: Negative Aggravating Factor(s): Ambulation Alleviating Factor(s): Nothing - Allergies/Home Medications Allergies/Adverse Reactions: Allergies Allergy/AdvReac Type Severity Reaction Status Date / Time Penicillins Allergy Severe Anaphylatic Verified 10/31/17 14:06 Shock Home Medications: Home Medications Acetaminophen TAB* [Tylenol TAB*] 352 mg PO DAILY 10/31/17 [History Confirmed ] Oxybutynin TAB* [Ditropan TAB*] 5 mg PO BID 10/31/17 [History Confirmed 10/31/17 ] PMH/Surg Hx/FS Hx/Imm Hx Endocrine/Hematology History: Denies: Hx Anticoagulant Therapy, Hx Diabetes Cardiovascular History: Denies: Hx Hypertension, Hx Pacemaker/ICD GI History: Reports: Other GI Disorders - COLITIS History: Denies: Hx Renal Disease Musculoskeletal History: Reports: Hx Bursitis Sensory History: Reports: Hx Cataracts, Hx Contacts or Glasses, Hx Hearing Aid Opthamlomology History: Reports: Hx Cataracts, Hx Contacts or Glasses Psychiatric History: Reports: Hx Depression Denies: Hx Panic Disorder - Cancer History Cancer Type, Location and Year: BREAST CA 2006. SKIN CANCER REMOVED FROM NOSE Hx Chemotherapy: Yes Hx Radiation Therapy: Yes - Surgical History Surgery Procedure, Year, and Place: APPENDIX A CHILD. 1980 COLLAPSED LUNG [facility]. 1985 HYSTERECTOMY [facility]/ DEVELOPED ADHESIONS AFTER HYSTERECTOMY. 2006 LEFT BREAST LUMPECTOMY(CANCEROUS) [facility]. 2006 INFUSAPORT [facility] SINCE HAS BEEN REMOVED. CATARACTS Hx Anesthesia Reactions: No Infectious Disease History: No Infectious Disease History: Denies: Traveled Outside the [place] in Last 30 Days - Family History Known Family History: Negative: Hypertension, Diabetes - Social History Alcohol Use: Rare Alcohol Amount: special events/occasions Substance Use Type: Reports: None Smoking Status (MU): Former Smoker Type: Cigarettes Amount Used/How Often: 1PPD 25 YRS Have You Smoked in the Last Year: No Review of Systems Negative: Fever Cardiovascular: Other - elevated blood pressure Negative: Shortness Of Breath, Cough Musculoskeletal: Other - left hip pain Skin: Negative Neurological: Negative All Other Systems Reviewed And Are Negative: Yes Physical Exam - Summary Physical Exam Summary: VITAL SIGNS: Reviewed. GENERAL: Patient is a well-developed and nourished female who is lying comfortable in the stretcher. Patient is not in any acute respiratory distress. HEAD AND FACE: No signs of trauma. No ecchymosis, hematomas or skull depressions. No sinus tenderness. EYES: PERRLA, EOMI x 2, No injected conjunctiva, no nystagmus. EARS: Hearing grossly intact. Ear canals and tympanic membranes are within normal limits. MOUTH: Oropharynx within normal limits. NECK: Supple, trachea is midline, no adenopathy, no JVD, no carotid bruit, no c- spine tenderness, neck with full ROM. CHEST: Symmetric, no tenderness at palpation LUNGS: Clear to auscultation bilaterally. No wheezing or crackles. CVS: Regular rate and rhythm, S1 and S2 present, no murmurs or gallops appreciated. ABDOMEN: Soft, non-tender. No signs of distention. No rebound no guarding, and no masses palpated. Bowel sounds are normal. EXTREMITIES: FROM in all major joints, no edema, no cyanosis or clubbing. Wound on left hip is healing well. Pt has decreased ROM of left hip, but this is chronic. NEURO: Alert and oriented x 3. No acute neurological deficits. Speech is normal and follows commands. SKIN: Dry and warm Triage Information Reviewed: Yes Vital Signs On Initial Exam: Initial Vitals Temp Pulse Resp BP Pulse Ox 98.0 F 95 19 136/70 95 10/31/17 13:39 10/31/17 13:39 10/31/17 13:39 10/31/17 13:39 10/31/17 13:39 Vital Signs Reviewed: Yes Diagnostics - Vital Signs Vital Signs Temp Pulse Resp BP Pulse Ox 10/31/17 13:39 98.0 F 95 19 136/70 95 - Laboratory Result Diagrams: 10/31/17 14:12 10/31/17 14:12 Lab Statement: Any lab studies that have been ordered have been reviewed, and results considered in the medical decision making process. - Radiology Left hip XR Xray Interpretation: No Acute Changes - IMPRESSION: Left hip arthroplasty. No acute findings. Dr. Rodriguez has reviewed this radiology report. Radiology Interpretation Completed By: Radiologist Chest XR Xray Interpretation: No Acute Changes - IMPRESSION: No active disease. Dr. Rodriguez has reviewed this radiology report. Radiology Interpretation Completed By: Radiologist Re-Evaluation - Re-Evaluation First Eval Re-Evaluation Time: 15:29 Change: Improved Comment: I reviewed the lab and XR results with the pt and son. Pt will be discharged home. Lower Extremity Course/Dx - Course Assessment/Plan: This pt is a 82 y/o female, accompanied by her son, presenting to [facility] via EMS for possible pneumonia and elevated blood pressure. Son reports the pt was in [facility] of rehab of partial left hip replacement ( done on 08/10/[address] Dickens). Son checked the pt out of [facility] 3 days ago. Visiting nurses came today and took her vitals and listened to her lungs. Per son, visiting RN reported she had a concern for possible pneumonia and requested to take her to the hospital. Pt denies fever, chills, cough, SOB. Son is also concerned for possible fall pt may have had while staying at [facility]. Pt notes her blood pressure is usually around 120/70 and today it was 140 /80. Son helps the pt with rehab exercises at home. Test results without any significant abnormalities. Urinalysis is negative for UTI. Left hip XR: Left hip arthroplasty. No acute findings. Chest XR: No active disease. Therefore she will be discharged to home with follow up from her PCP. I discussed all the findings and test results with the patient and her son. All questions were answered to patient satisfaction. There were no further complaints or concerns. She is instructed to return to the ED for any worsening or new symptoms. Pt is hemodynamically stable, alert and oriented x3. Dx: uncontrolled blood pressure. - Diagnoses Provider Diagnoses: Elevated blood pressure reading Discharge - Sign-Out/Discharge Documenting (check all that apply): Discharge - discharge to home - Discharge Plan Condition: Stable Disposition: HOME Patient Education Materials: Hypertension (ED) Referrals: Jayden Murcia INTERPERSONAL COMMUNICATIONS PROFESSOR [Primary Care Provider] - 3 Days Additional Instructions: Please follow up with your primary care provider. RETURN TO THE ED FOR ANY NEW OR WORSENING SYMPTOMS. The documentation as recorded by the Leonel gale Angela accurately reflects the service I personally performed and the decisions made by , Jayson Rodriguez MD.
== END 2017-10-31 16:23 | disposition home or self-care (01) ==
LOC: ED 13:36
DX: M25.552 Pain in left hip (principal); R03.0 Elevated blood-pressure reading, without diagnosis of hypertension; Z96.642 Presence of left artificial hip joint
CPT/HCPCS: 36415; 71046; 80053; 81003; 81015; 83880; 85025; 87077; 87086; 87186; 99282

== ENCOUNTER 2019-03-27 09:52 | Inpatient (IN) | payer MEDICARE ==
[2019-03-27] MEDS ORDERED: metroNIDAZOLE IV 500 MG/100ML* 500 MG/100 ML BAG IVPB ONE (10:28)
[2019-03-27] MEDS ORDERED: Ciprofloxacin 400MG IVPREMIX(* 400 MG/200 ML BAG IVPB ONE (10:28)
--- NOTE | 2019-03-27 10:34 | ED ---
Altered Mental Status - HPI Summary HPI Summary: This patient is an 83 year old F [facility] sons with a chief complaint of pt being unresponsive since 2 days ago. Pt lives with son. Son brought pt into ED, because for the past 2 days pt was less responsive, diaphoretic, fever and had severe chills. Last night the symptoms worsened even further. Pt has had a bug for the past 3-4 days, and son had been letting her lay down for longer to normal. The son also reports that pt has a bedsore on her buttock. Pt has had no complains of pain. Pt has no Hx of diabetes, HTN, or heart disease. Pt has had an appendectomy, and breast cancer, and lower bowel obstruction. Patients son reports intermittent chronic diarrhea, and loss of appetite. This morning the pt only had cranberry juice and ensure. Patients son denies coughing Medications reviewed. Allergies noted. - History Of Current Complaint Chief Complaint: EDShortnessOfBreath Stated Complaint: NON-RESPNSIVE PER SON Time Seen by Provider: 03/27/19 10:02 Hx Obtained From: Family/Superintendent Automotive Hx From Patient Unobtainable Due To: Other Onset/Duration: Still Present, Gradually Timing: Constant, Lasting Days Severity Currently: None Character: Responsiveness Aggravating Factor(s): Unknown Alleviating Factor(s): Nothing Associated Signs And Symptoms: Positive: Fever, Weakness - Allergies/Home Medications Allergies/Adverse Reactions: Allergies Allergy/AdvReac Type Severity Reaction Status Date / Time Penicillins Allergy Severe Anaphylatic Verified 10/31/17 14:06 Shock PMH/Surg Hx/FS Hx/Imm Hx Endocrine/Hematology History: Denies: Hx Anticoagulant Therapy, Hx Diabetes Cardiovascular History: Denies: Hx Hypertension, Hx Pacemaker/ICD GI History: Reports: Other GI Disorders - COLITIS History: Denies: Hx Renal Disease Musculoskeletal History: Reports: Hx Bursitis Sensory History: Reports: Hx Cataracts, Hx Contacts or Glasses, Hx Hearing Aid Opthamlomology History: Reports: Hx Cataracts, Hx Contacts or Glasses Psychiatric History: Reports: Hx Depression Denies: Hx Panic Disorder - Cancer History Cancer Type, Location and Year: BREAST CA 2006. SKIN CANCER REMOVED FROM NOSE Hx Chemotherapy: Yes Hx Radiation Therapy: Yes - Surgical History Surgery Procedure, Year, and Place: APPENDIX A CHILD. 1980 COLLAPSED LUNG [facility]. 1985 [facility]STERECTOMY [facility]/ DEVELOPED ADHESIONS AFTER HYSTERECTOMY. 2006 LEFT BREAST LUMPECTOMY(CANCEROUS) [facility]. 2006 INFUSAPORT [facility] SINCE HAS BEEN REMOVED. CATARACTS Hx Anesthesia Reactions: No Infectious Disease History: No Infectious Disease History: Denies: Traveled Outside the [place] in Last 30 Days - Family History Known Family History: Negative: Hypertension, Diabetes - Social History Alcohol Use: Rare Alcohol Amount: special events/occasions Substance Use Type: Reports: None Smoking Status (MU): Former Smoker Type: Cigarettes Amount Used/How Often: 1PPD 25 YRS Have You Smoked in the Last Year: No Review of Systems Positive: Fever, Chills, Skin Diaphoresis Negative: Cough Positive: Diarrhea Positive: Other - Sore on buttock Neurological: Other - Decreased responsiveness All Other Systems Reviewed And Are Negative: Yes Physical Exam - Summary Physical Exam Summary: Constitutional: Well-developed, Well-nourished, Alert. (-) Distressed Skin: Warm, Dry, skin break down on left buttock, with surrounding erythema that is warm to the touch HENT: Normocephalic; Atraumatic Eyes: Conjunctiva normal Neck: Musculoskeletal ROM normal neck. (-) JVD, (-) Stridor, (-) Tracheal deviation Cardio: Rhythm regular, tachycardic, Heart sounds normal; Intact distal pulses; The pedal pulses are 2+ and symmetric. Radial pulses are 2+ and symmetric. (-) Murmur Pulmonary/Chest wall: Effort normal. (-) Respiratory distress, (-) Wheezes, (-) Rales Abd: Soft, (-) Distension, (-) Guarding, (-) Rebound, , LLQ abdominal pain Musculoskeletal: (-) Edema Lymph: (-) Cervical adenopathy Neuro: Nods head to some questions Triage Information Reviewed: Yes Vital Signs On Initial Exam: Initial Vitals Temp Pulse Resp BP Pulse Ox 98.4 F 125 16 118/75 94 03/27/19 09:57 03/27/19 09:57 03/27/19 09:57 03/27/19 09:57 03/27/19 09:57 Vital Signs Reviewed: Yes Diagnostics - Vital Signs Vital Signs Temp Pulse Resp BP Pulse Ox 03/27/19 10:00 124 29 88 03/27/19 09:58 122 118/75 89 03/27/19 09:57 98.4 F 125 16 118/75 94 - Laboratory Result Diagrams: 03/27/19 10:39 03/27/19 10:39 Lab Statement: Any lab studies that have been ordered have been reviewed, and results considered in the medical decision making process. - Radiology CXR Radiology Interpretation Completed By: Radiologist Summary of Radiographic Findings: CXR reveals, per radiologist, IMPRESSION: NO ACTIVE CARDIOPULMONARY DISEASE IS NOTED. ED physician has reviewed this radiology report. - CT Abdomen/Pelvis CT CT Interpretation Completed By: Radiologist Summary of CT Findings: Abdomen/Pelvis CT reveals, per radiologist, IMPRESSION: 1. LARGE AMOUNT OF STOOL THROUGHOUT THE COLON WITH A LARGE STOOL BALL IN THE RECTUM. 2. THERE IS SOFT TISSUE THICKENING ALONG THE ANUS. RECOMMEND CORRELATION WITH DIRECT VISUALIZATION. 3. LEFT BASILAR CONSOLIDATION. 4. ATHEROSCLEROSIS. ED physician has reviewed this radiology report. - EKG 10:38 Cardiac Rate: Tachycardia - 118 bpm EKG Rhythm: Sinus Tachycardia Summary of EKG Findings: An EKG at 10:38 reveals sinus tachycardia 118 bpm, ST- depression in V2-V4, Re-Evaluation - Re-Evaluation First Eval Re-Evaluation Time: 01:11 Altered Mental Statu Course/Dx - Course Course Of Treatment: Patient is here with severe sepsis tender to likely pneumonia. Patient came in with generalized weakness and decreased mentation. Patient did have left lower quadrant tenderness so she is treated empirically with intra-abdominal antibiotics. Patient had a lactate of 2.4. Patient received 1.5 L IV fluids. Patient has a white count. Patient had a negative chest x-ray for pneumonia. Patient made a UA for UTI. Patient's CT scan within no evidence of colitis but did show a basilar infiltrate. Patient had clinical myosin added to her antibiotics to meet sepsis criteria. - Diagnoses Provider Diagnoses: Severe sepsis, Pneumonia, Tachycardia - Provider Notifications Discussed Care Of Patient With: Liliana Shen Time Discussed With Above Provider: 13:00 Instructed by Provider To: Other - Discussed case with Dr. Shen, who accepts pt for admission. Discharge ED - Sign-Out/Discharge Documenting (check all that apply): Patient Departure - Admit Patient Received Moderate/Deep Sedation with Procedure: No - Discharge Plan Condition: Stable Disposition: HOME Referrals: Jayden Murcia TRUCK BENCH MECHANIC [Primary Care Provider] - - Billing Disposition and Condition Condition: STABLE Disposition: Home - Attestation Statements Document Initiated by Scribe: Yes Documenting Scribe: Keri Gipson Provider For Whom Scribe is Documenting (Include Credential): Mir Villagomez MD Scribe Attestation: Keri Bryan, scribed for Mir Villagomez MD on 03/27/19 at 1528. Scribe Documentation Reviewed: Yes Provider Attestation: The documentation as recorded by the jennaibe, Keri Gipson accurately reflects the service I personally performed and the decisions made by me, Mir Villagomez MD Status of Scribe Document: Viewed
[2019-03-27] MEDS ORDERED: NS 0.9% 1000 ML** 1,000 ML IV ONE (10:48)
[2019-03-27 11:05] LABS: ABS Lymphocytes 0.6 10^3/ul (1.0-4.8); ABS Monocytes 1.2 10^3/ul (0-0.8); ABS Neutrophils 12.5 10^3/ul (1.5-7.7); Hematocrit 44 % (35-47); Hemoglobin 14.3 g/dL (12.0-16.0); Lymphocyte % 4.4 %; Mean Corpuscular HGB Conc 33 g/dL (31-36); Mean Corpuscular Hemoglobin 32 pg (27-31); Mean Corpuscular Volume 99 fL (80-97); Mean Platelet Volume 8.4 fL (7.4-10.4); Platelet Count 281 10^3/uL (150-450); Red Blood Count 4.41 10^6 /uL (3.70-4.87); Red Cell Distribution Width 13 % (10-15); White Blood Count 14.3 10^3/uL (3.5-10.8)
[2019-03-27 11:12] LABS: Activated Partial Thrombo Time 37.7 seconds (26.0-38.0); INR 1.23 (0.82-1.09)
[2019-03-27 11:30] LABS: Troponin I 0.04 ng/mL (<0.04)
[2019-03-27 11:55] LABS: ALT 15 U/L (7-52); AST 20 U/L (13-39); Albumin 3.8 g/dL (3.2-5.2); Albumin/Globulin Ratio 1.2 (1-3); Alkaline Phosphatase 98 U/L (34-104); BUN/Creatinine Ratio 64.9 (8-20); Blood Urea Nitrogen 50 mg/dL (6-24); CO2 Carbon Dioxide 29 mmol/L (22-32); Calcium 9.5 mg/dL (8.6-10.3); Chloride 108 mmol/L (101-111); EGFR African American 86.4 (>60); EGFR Non-African American 71.4 (>60); Globulin 3.3 g/dL (2-4); Glucose 273 mg/dL (70-100); Total Protein 7.1 g/dL (6.4-8.9)
[2019-03-27 11:56] LABS: Anion Gap 12 mmol/L (2-11); Sodium 149 mmol/L (135-145)
[2019-03-27] MEDS ORDERED: Iohexol 300* (CONTRAST) 10 ML SDV IV ONE (12:02)
[2019-03-27 12:08] LABS: Urine Appearance Cloudy; Urine Bacteria Absent (Absent); Urine Bilirubin Negative (Negative); Urine Blood Negative (Negative); Urine Color Amber; Urine Glucose Negative (Negative); Urine Ketones Trace (Negative); Urine Nitrite Negative (Negative); Urine Protein 1+(30 mg/dL) (Negative); Urine Red Blood Cell 3+(>10/hpf) (Absent); Urine Specific Gravity 1.024 (1.010-1.030); Urine Urobilinogen Negative (Negative); Urine White Blood Cell 3+(>20/hpf) (Absent)
[2019-03-27] MEDS ORDERED: NS 0.9% 1000 ML** 500 ML IV ONE (13:08)
[2019-03-27] MEDS ORDERED: Potassium Chloride* LIQUID 20 MEQ/15 ML UDC PO ONE (13:19)
[2019-03-27] MEDS ORDERED: Clindamycin 300 MG IVPREMIX* 300 MG/50 ML SDV IVPB ONE (13:47)
[2019-03-27 13:51] LABS: Magnesium 2.4 mg/dL (1.9-2.7)
[2019-03-27 16:08] LABS: BUN/Creatinine Ratio 85.4 (8-20); Calcium 9.2 mg/dL (8.6-10.3); EGFR African American 149.1 (>60); EGFR Non-African American 123.2 (>60); Potassium 2.9 mmol/L (3.5-5.0)
[2019-03-27] MEDS ORDERED: NS 0.9% 1000 ML** 1,000 ML IV SCH (16:15)
[2019-03-27] MEDS ORDERED: KCL 10 MEQ/50 ML IVPREMIX* 10 MEQ/50 ML BAG IV SCH (16:21)
[2019-03-27] MEDS ORDERED: Aztreonam (*) 2 GM in NS 0.9% 100 ML* 100 ML IV SCH (16:26)
[2019-03-27] MEDS ORDERED: Dextrose 50% VIAL 50 ml IV PUSH PRN (16:26)
--- NOTE | 2019-03-27 16:48 | HP ---
History of Present Illness - History of Present Illness Reason for Visit: Altered mental Status History of Present Illness: Ms. Yajaira Paige is a 83 yo female with history of ulcerative colitis, left breast cancer, left hip fracture s/p operation last year, presented with Altered mental status for 3 days duration. Patient was unable to obey command or converse, history was obtained from her son who is the career development associate. Pt was bedbound since her left hip fracture operation last year after discharging from [facility]. She required assistance in feeding and all her self care. She could talk with son in short words or phrases at home, verbalize her need, chew food at home. She was found to be less responsive 3 days ago, she didn't verbalize any discomfort or pain, but she didn't eat anything since yesterday. This morning, son found her more unresponsive, found her feverish (no temperature taken), diaphoresis, shivering, therefore sent to ED. He noted patient had bedsore on and off for months, he cleaned it and changed dressing on daily basis, but he still found it got worse today, but no purulent discharge seen . Patient had bowel and urine incontinence, also long history of ulcerative colitis and IBS, she had diarrhea 4 times per day recently. He denied any vomiting, chest pain, palpitation, SOB, dysuria based on his observation. - Past Medical History Past Medical History: 1. Ulcerative Colitis 2. HLD 3. trigeminal neuralgia 4. 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 lower bowel obstruction - Past Surgical History Past Surgical History: 1. Appendectomy 2. Hysterectomy 3. Left hip replacement. - Past Family History Past Family History: Father: oral cancer, 3 kids, 1 Son: Liver cancer;others well - Past Social History Past Social History: Bedbound, son is the only career development associate, taking care of her at home. No tobacco, alcohol or recreational drug use. Full code status for now, no DNR discussed before. Review of Systems - Review of Systems Constitutional: Positive: Chills, Other - Ke Eyes: Negative: Pain, Vision Change, Conjunctivae Inflammation, Eyelid Inflammation, Redness, Other ENT: Negative: Ear Pain, Ear Discharge, Nose Pain, Nose Discharge, Nose Congestion, Mouth Pain, Mouth Swelling, Throat Pain, Throat Swelling, Other Gastrointestinal: Positive: Diarrhea Genitourinary: Negative: Dysuria, Frequency, Incontinence, Hematuria, Retention , Other Musculoskeletal: Negative: Neck Pain, Shoulder Pain, Arm Pain, Back Pain, Hand Pain, Leg Pain, Foot Pain, Other Skin: Negative: Rash, Lesions, Temo, Bruising, Other Neurological: Positive: Confusion, Other - Altered mental status, less responsive - Medications/Allergies Allergies/Adverse Reactions: Allergies Allergy/AdvReac Type Severity Reaction Status Date / Time Penicillins Allergy Severe Anaphylatic Verified 10/31/17 14:06 Shock Medications: Home Medication Reconcillation Done with Son Balsalazide 3000mg po bid Current Medication Balsalazide (Balsalazide (Nf)) 3,000 mg PO BID [facility] Dextrose (Dextrose 50% Vial 50 Ml*) 25 ml IV PUSH .FOR FS < 60 - SS PRN PRN Reason: FS < 60 Enoxaparin Sodium (Lovenox(*)) 40 mg SUBCUT Q24H MINESH Potassium Acetate 40 meq/ (Sodium Chloride) 1,000 mls @ 75 mls/hr IV PER RATE MINESH Stop: 03/29/19 05:40 Levofloxacin/Dextrose (Levaquin 750 Mg Ivpremix(*)) 750 mg in 150 mls @ 100 mls /hr IVPB Q24H MINESH; Protocol Insulin Human Lispro (Humalog*) 0 units SUBCUT ACHS MINESH; Protocol Exam Vital Signs: Vital Signs (72 hours) 03/27/19 03/27/19 03/27/19 09:57 09:58 10:00 Temperature 98.4 F Pulse Rate 125 122 124 Respiratory 16 29 Rate Blood Pressure 118/75 118/75 (mmHg) O2 Sat by Pulse 94 89 88 Oximetry 03/27/19 03/27/19 03/27/19 10:17 10:26 11:00 Temperature Pulse Rate 113 Respiratory 20 27 Rate Blood Pressure (mmHg) O2 Sat by Pulse 96 95 Oximetry 03/27/19 03/27/19 03/27/19 11:01 11:31 12:00 Temperature Pulse Rate 111 100 94 Respiratory 27 20 20 Rate Blood Pressure 110/77 123/58 (mmHg) O2 Sat by Pulse 96 95 98 Oximetry 03/27/19 03/27/19 03/27/19 12:01 13:00 13:01 Temperature Pulse Rate 90 94 95 Respiratory 18 19 18 Rate Blood Pressure 130/72 115/64 (mmHg) O2 Sat by Pulse 96 98 99 Oximetry 03/27/19 03/27/19 03/27/19 13:31 14:01 14:31 Temperature Pulse Rate 99 103 105 Respiratory 23 24 25 Rate Blood Pressure 114/65 119/68 131/75 (mmHg) O2 Sat by Pulse 98 98 98 Oximetry 03/27/19 03/27/19 03/27/19 15:01 15:31 16:01 Temperature Pulse Rate 109 Respiratory 26 20 25 Rate Blood Pressure 119/73 125/79 134/86 (mmHg) O2 Sat by Pulse 99 Oximetry Exam: General - Lethargic, not responsive to verbal or tactile stimulus Eyes - PERRLA HEENT- no abnormality Lymph Nodes - No lymphadenopathy Cardiovascular - RRR no m/r/g, no JVD, no carotid bruits Lungs - Clear to auscltation, no use of acessory muscles, no crackles or wheezes. Skin - 5cm big decubitus sacral ulcer seen, no bone exposure, necrotic tissues seen, erythematous base seen Abdomen - Abdomen soft, generalized tenderness, no rebound tenderness Extremeties - No edema, cyanosis or clubbing Musculo Skeletal - muscle contraction seen on bilateral arms and legs Neurological: deferred as pt unable to obey command psychiatry: deferred as pt unable to converse Assessment/Plan - Assessment/Plan Assessment: Ms. Yajaira Paige is a 83 yo female, bedbound, ADL assisted, with history of ulcerative colitis, left breast cancer, left hip fracture s/p operation last year, presented with altered mental status (less responsive) with a possible fever, and worsening sacral sore. She had sepsis based on SIRS criteria, with tachycardia, leukocytosis, and elevated lactate acid. The potential cause of sepsis in her case is one lung infection which was supported by CT findings of consolidation in left lung, second urine tract infection which was supported by her pyuria, third colitis in view of CTAP results and history of ulcerative colitis. She also had sacral decubitus ulcer found, but less likely the cause of sepsis as it's grade II with no discharge seen. Plan: 1. Sepsis cx septic encephalopathy - Meets SIRS criteria with tachycardia, leukocytosis, high lactic acid - Fluid resuscitation: 1.5L bolus given in ED, will give maintainence fluid with potassium in the next 24 hours - recheck lactic acid while fluid resuscitating until <2 - start iv Levaquin for CAP in view of penicillin allergy - check CT chest in view of discordant result from CXR and CTAP incidental lung findings - NPO for now in view of her altered mental status - Awaiting urine culture result, bowel regimen 2. Sacral decubitus ulcer - wound team consult today - frequent turning Q4h 3. Elevated Troponin - no ECG changes seen - trace troponin for another 2 sets 4. Elevated blood glucose - no history of DM - HbA1c added, put on sliding scale for now 5. DVT prophylaxis - sq Lovenox Attestation Documenting Resident: Anni Casey Supervising Physician: Umair Draper Attending/Supervising Physician Comment: Agree with plan as outlined here by Dr. Casey unless indicated. Sepsis in the setting of LLL PNA Lactate improved Potassium repletion and recheck in AM Troponin now normalize Discussion with son regarding GOC. He would like her "to return home" and would want "everything" including chest compressions and intubation if needed. Attestation: This service has been performed in part by a resident under the direction of a teaching physician.I, Umair Draper, performed the service, or was physically present during the critical, or glez portions of the service, furnished by the resident. I participated in the management of the patient.
--- NOTE | 2019-03-27 17:14 | CONSULT ---
Subjective Date of Service: 03/27/19 Interval History: Ms. Paige is a 83 yo female with PMH significant for ulcerative colitis, HLD, trigeminal neuralgia, breast CA s/p chemo and radiation; who presented to the emergency room with altered mental status. She is being admitted to the hospital for sepsis. According to her son who is at bedside, she has developed wounds to her buttocks that usually heal in the few days with turning and repositioning. This time, the wound has continued to get larger despite turning and repositioning. Patient seen and examined at bedside in the ED. Family History: Unchanged from Admission Social History: Unchanged from Admission Past Medical History: Unchanged from Admission Review of Systems - Measurements Intake and Output: Intake and Output Last 24 Hours 03/25/19 03/26/19 03/27/19 03/28/19 06:59 06:59 06:59 06:59 Weight 90 lb - Review of Systems General Comments: Unable to perform ROS, and patient is not answering questions at this time. Constitutional Symptoms: Negative: Fever, Other - Chills Dermatology: Positive: Other - Pressure injury to buttocks Gastroenterology: Positive: Other - Hemorrhoids Objective Active Medications: Balsalazide (Balsalazide (Nf)) 3,000 mg PO BID [facility] Dextrose (Dextrose 50% Vial 50 Ml*) 25 ml IV PUSH .FOR FS < 60 - SS PRN Reason : FS < 60 Enoxaparin Sodium (Lovenox(*)) 40 mg SUBCUT Q24H [facility] Potassium Acetate 40 meq/ (Sodium Chloride) 1,000 mls @ 75 mls/hr IV PER RATE [facility] Stop: 03/29/19 05:40 Levofloxacin/Dextrose (Levaquin 750 Mg Ivpremix(*)) 750 mg in 150 mls @ 100 mls /hr IVPB Q24H [facility]; Protocol Insulin Human Lispro (Humalog*) 0 units SUBCUT ACHS [facility]; Protocol Vital Signs 03/27/19 16:53 Temperature 98.7 F Pulse Rate 97 Respiratory 17 Rate Blood Pressure 126/68 (mmHg) O2 Sat by Pulse 100 Oximetry Oxygen Devices in Use Now: Simple Face Mask Appearance: NAD, fail, laying on stretcher Ears/Nose/Mouth/Throat: - - Dry mucous membranes Respiratory: Symmetrical Chest Expansion and Respiratory Effort Extremities: - - 2+ DP pulse bilateral Neurological: - - Alert, but non verbal Result Diagrams: 03/28/19 05:17 03/28/19 05:18 Additional Lab and Data: Above labs were pulled into the note when edited prior to signing, please see labs from day of consultation below. Laboratory Tests 03/27/19 03/27/19 03/27/19 10:39 10:39 15:07 WBC 14.3 H Hgb 14.3 Hct 44 Plt Count 281 Sodium 147 H Potassium 2.9 L Chloride 111 Carbon Dioxide 27 BUN 41 H Creatinine 0.48 L Glucose 113 H Total Protein 7.1 Albumin 3.8 Skin Deviation Note - Skin Deviation Findings Sacrum - There is a stage 2 pressure injury with associated deep tissue injury. The whole area measures 9 cm x 8 cm, there is a a superficial open area at 3 o' clock that is 0.1 cm deep. There is a large deep tissue area, measures 5 cm x 3.5 cm. The wound base is non blanching. The surrounding skin is intact. There is drainage. Right heel - There is a blister to the heel, measures 3.5 cm x 5 cm. The surrounding skin is intact. Left hip - There is an area of erythema, measures 2.5 cm x 3.5 cm. The area is non blanching. The surrounding skin is intact, there is no drainage. Wound Problem/Plan Assessment: Ms. Paige is a 83 yo female with PMH significant for ulcerative colitis, HLD, trigeminal neuralgia, breast CA s/p chemo and radiation; who presented to the emergency room with altered mental status. She has developed wounds to her buttocks that usually heal in the few days over the past few months. 1. Sacral wound. Stage 2 pressure injury with associated deep tissue injury. Recommend frequent turning and repositioning. Incontinence care as needed. Apply barrier cream (orange top) to area as needed. Consider checking prealbumin to evaluate nutritional status. 2. Left hip stage 1 pressure injury. Frequent turning and repositioning. 3. Right heel deep tissue injury. There is an intact blister to the heel. Keep heels elevated off the bed. Could consider checking ABIs, does not need to be acutely done as she is noted to have positive DP pulses. 4. Diet. NPO 5. Code Status. Full Code. 6. Disposition. Inpatient, disposition per primary medicine team. Is Patient a Wound Clinic Patient: No Counseling and/or Coordination of Care Minutes: 30 Points of Discussion: TIME SPENT: Time for this consultation was 30 minutes and 20 minutes was spent at bedside with the patient and son discussing past medical history; assessing, measuring, and photographing the wounds; discussing with the patient's son regarding treatment of skin issues. Attending: Malena Tripathi
[2019-03-27] MEDS ORDERED: Polyethylene Glycol 3350* 17 GM PACKET PO PRN (17:21)
[2019-03-27] MEDS: Insulin LISPRO* 1 UNITS UNIT SUBCUT SCH ×2 (17:57→22:21)
[2019-03-27] MEDS ORDERED: NS 0.9% IV SCH ×3 (18:00→23:00)
[2019-03-27] MEDS ORDERED: POTASSIUM ACETATE IV SCH ×3 (18:00→23:00)
[2019-03-27] MEDS: Enoxaparin(*) 40 MG/0.4 ML SYR SUBCUT SCH (18:08)
[2019-03-27] MEDS: PTO:Balsalazide (NF) 750 MG CAP PO SCH (22:21)
[2019-03-27] MEDS: Levofloxacin 750 MG IVPREMIX(* 750 MG/150 ML BAG IVPB SCH (23:20)
[2019-03-28 05:55] LABS: ABS Lymphocytes 0.7 10^3/ul (1.0-4.8); ABS Monocytes 0.8 10^3/ul (0-0.8); ABS Neutrophils 8.1 10^3/ul (1.5-7.7); Hematocrit 34 % (35-47); Hemoglobin 11.5 g/dL (12.0-16.0); Mean Corpuscular HGB Conc 33 g/dL (31-36); Mean Corpuscular Hemoglobin 33 pg (27-31); Mean Corpuscular Volume 99 fL (80-97); Mean Platelet Volume 8.3 fL (7.4-10.4); Platelet Count 191 10^3/uL (150-450); Red Blood Count 3.49 10^6 /uL (3.70-4.87); Red Cell Distribution Width 13 % (10-15); White Blood Count 9.6 10^3/uL (3.5-10.8)
[2019-03-28 06:20] LABS: BUN/Creatinine Ratio 89.7 (8-20); Blood Urea Nitrogen 35 mg/dL (6-24); CO2 Carbon Dioxide 28 mmol/L (22-32); Calcium 8.6 mg/dL (8.6-10.3); EGFR African American 189.5 (>60); EGFR Non-African American 156.6 (>60); Glucose 109 mg/dL (70-100); Potassium 3.6 mmol/L (3.5-5.0)
[2019-03-28 06:34] LABS: Anion Gap 5 mmol/L (2-11); Chloride 117 mmol/L (101-111); Sodium 150 mmol/L (135-145)
[2019-03-28] MEDS ORDERED: NS 0.45% KCl 20 Meq 1000 ML* 1,000 ML IV SCH (07:00)
[2019-03-28 08:42] LABS: Folate > 20.00 ng/mL (>3.99)
[2019-03-28] MEDS: Insulin LISPRO* 1 UNITS UNIT SUBCUT SCH ×3 (11:06→16:21)
[2019-03-28] MEDS: PTO:Balsalazide (NF) 750 MG CAP PO SCH (11:10)
[2019-03-28] MEDS ORDERED: NS 0.9% w/ 40 Meq KCL 1000 ML* 1,000 ML IV SCH (12:30)
--- NOTE | 2019-03-28 13:59 | PN ---
Subjective Date of Service: 03/28/19 Interval History: According to patient's son, she appears more responsive today. She still haven' t managed to verbalize yet. Otherwise, no fever, tahycardia resolved overnight. This morning, pt was alert with eyes wide open, but unable to carry out conversation, no cough, no SOB. Objective Active Medications: Balsalazide (Balsalazide (Nf)) 3,000 mg PO BID [facility] Last Admin: 03/28/19 11:10 Dose: Not Given Dextrose (Dextrose 50% Vial 50 Ml*) 25 ml IV PUSH .FOR FS < 60 - SS PRN PRN Reason: FS < 60 Enoxaparin Sodium (Lovenox(*)) 40 mg SUBCUT Q24H [facility] Last Admin: 03/27/19 18:08 Dose: 40 mg Levofloxacin/Dextrose (Levaquin 750 Mg Ivpremix(*)) 750 mg in 150 mls @ 100 mls /hr IVPB Q24H [facility]; Protocol Last Admin: 03/27/19 23:20 Dose: 100 mls/hr Potassium Chloride/Sodium Chloride (Ns 0.45% Kcl 20 Meq 1000 Ml*) 1,000 mls @ 75 mls/hr IV PER RATE [facility] Stop: 03/28/19 20:19 Insulin Human Lispro (Humalog*) 0 units SUBCUT ACHS [facility]; Protocol Last Admin: 03/28/19 11:40 Dose: Not Given Polyethylene Glycol/Electrolytes (Miralax*) 17 gm PO DAILY PRN PRN Reason: CONSTIPATION Vital Signs - 8 hr 03/28/19 03/28/19 03/28/19 07:37 07:45 08:00 Temperature 98.8 F Pulse Rate 103 Respiratory 16 16 Rate Blood Pressure 123/67 (mmHg) O2 Sat by Pulse 99 99 Oximetry 03/28/19 11:07 Temperature 97.7 F Pulse Rate 101 Respiratory 20 Rate Blood Pressure 114/58 (mmHg) O2 Sat by Pulse 96 Oximetry Oxygen Devices in Use Now: Simple Face Mask Exam: General - eyes wide open, lips move when I called her name, but no more reactions with verbal stimulus. Eyes - PERRLA, EOM intact HEENT- no abnormality Lymph Nodes - No lymphadenopathy Cardiovascular - RRR no m/r/g, no JVD, no carotid bruits Lungs -left basal mild creps, no use of acessory muscles, no crackles or wheezes. Skin - No rashes, skin warm and dry, no erythematous areas Abdomen - Normal bowel sounds, abdomen soft and nontender Extremeties - No edema, cyanosis or clubbing Musculo Skeletal - 5/5 strength, normal range of motion, no swollen or erythematous joints. Neurological Alert and oriented x 3, CN 2-12 grossly intact. Psychiatry- mood stable. Result Diagrams: 03/28/19 05:17 03/28/19 05:18 Additional Lab and Data: Above labs were pulled into the note when edited prior to signing, please see labs from day of consultation below. Laboratory Tests 03/27/19 03/27/19 03/27/19 10:39 10:39 15:07 WBC 14.3 H Hgb 14.3 Hct 44 Plt Count 281 Sodium 147 H Potassium 2.9 L Chloride 111 Carbon Dioxide 27 BUN 41 H Creatinine 0.48 L Glucose 113 H Total Protein 7.1 Albumin 3.8 Assess/Plan/Problems-Billing Assessment: Ms. Yajaira Paige is a 83 yo female, bedbound, ADL assisted, presented with altered mental status, found to have sepsis which is likely caused by community acquired pneumonia and UTI. She was also found to have stage 2 sacral decubitus ulcer. - Patient Problems (1) Sepsis Current Visit: Yes Status: Acute Comment: - Likely source: CAP and UTI - pyuria found, urine c/s staph lugdunesis, contamination likely - left lung minimal consolidation confirmed by CT chest - IV hydration with 0.45% NS today due to high Na, Cl in morning bld (2) Decubitus ulcer of sacral region, stage 2 Current Visit: Yes Status: Acute Code(s): L89.152 - PRESSURE ULCER OF SACRAL REGION, STAGE 2 SNOMED Code(s): 067866131 Comment: -barrier cream and dressing change (3) DVT prophylaxis Current Visit: No Status: Acute Code(s): STW5156 - SNOMED Code(s): 044970533 Comment: - SQ Lovenox (4) Decubitus ulcer, hip Current Visit: Yes Status: Acute Code(s): L89.209 - PRESSURE ULCER OF UNSPECIFIED HIP, UNSPECIFIED STAGE SNOMED Code(s): 345847250 Comment: frequent turning and repositioning (5) Full code status Current Visit: No Status: Acute Code(s): Z78.9 - OTHER SPECIFIED HEALTH STATUS SNOMED Code(s): 202131122 Status and Disposition: Inpatient Medicine. Attestation Documenting Resident: Anni Casey Supervising Physician: Umair Draper Attending/Supervising Physician Comment: Agree with Dr. Casey's note as outlined here unless indicated Sepsis suspected PNA as source improving slowly on abx. Pt is severely deconditioned Severe protein calorie malnutrition - encouraged high protein intake but is consuming very little Hypernatremia - still very dry. WIll continue additional liter of 1/2NS and recheck in AM Attestation: This service has been performed in part by a resident under the direction of a teaching physician.I, Umair Draper, performed the service, or was physically present during the critical, or glez portions of the service, furnished by the resident. I participated in the management of the patient.
[2019-03-28] MEDS: Enoxaparin(*) 40 MG/0.4 ML SYR SUBCUT SCH (16:25)
[2019-03-28] MEDS: Levofloxacin 750 MG IVPREMIX(* 750 MG/150 ML BAG IVPB SCH (23:34)
[2019-03-29 06:01] LABS: ABS Lymphocytes 0.5 10^3/ul (1.0-4.8); ABS Monocytes 0.5 10^3/ul (0-0.8); ABS Neutrophils 6.1 10^3/ul (1.5-7.7); Eosinophil % 0.2 %; Hematocrit 33 % (35-47); Hemoglobin 10.6 g/dL (12.0-16.0); Lymphocyte % 7.4 %; Mean Corpuscular HGB Conc 32 g/dL (31-36); Mean Corpuscular Hemoglobin 33 pg (27-31); Mean Corpuscular Volume 101 fL (80-97); Mean Platelet Volume 8.3 fL (7.4-10.4); Platelet Count 166 10^3/uL (150-450); Red Blood Count 3.26 10^6 /uL (3.70-4.87); Red Cell Distribution Width 13 % (10-15); White Blood Count 7.1 10^3/uL (3.5-10.8)
[2019-03-29 06:17] LABS: BUN/Creatinine Ratio 81.8 (8-20); Calcium 8.3 mg/dL (8.6-10.3); EGFR African American 229.7 (>60); EGFR Non-African American 189.9 (>60)
[2019-03-29] MEDS ORDERED: Senna TAB 8.6 mg* TAB PO PRN (15:12)
--- NOTE | 2019-03-29 17:26 | PN ---
Subjective Date of Service: 03/29/19 Interval History: Patient was more responsive today. She shouted pain when I pressed her abdomen, she turned to me when I talked to her. Dr. Draper talked to her son at bedside regarding goal of care. Son understands patient is declining in general and will continue to decline with her current bedbound, malnutrition status, little chance of getting her back to her previous state. Son still requested full active care for her. When further questioned about what was the care patient wanted, he admitted he didn't know. Objective Active Medications: Enoxaparin Sodium (Lovenox(*)) 40 mg SUBCUT Q24H [facility] Last Admin: 03/28/19 16:25 Dose: 40 mg Levofloxacin/Dextrose (Levaquin 750 Mg Ivpremix(*)) 750 mg in 150 mls @ 100 mls /hr IVPB Q24H [facility]; Protocol Last Admin: 03/28/19 23:34 Dose: 100 mls/hr Polyethylene Glycol/Electrolytes (Miralax*) 17 gm PO DAILY PRN PRN Reason: CONSTIPATION Senna (Senokot 8.6 Mg Tab*) 1 tab PO DAILY PRN PRN Reason: CONSTIPATION Vital Signs - 8 hr 03/29/19 11:23 Temperature 97.4 F Pulse Rate 94 Respiratory 16 Rate Blood Pressure 116/58 (mmHg) O2 Sat by Pulse 100 Oximetry Oxygen Devices in Use Now: Nasal Cannula Exam: General - reactive to verbal stimulus and tactile stimulus. speak in words. Eyes - PERRLA, EOM intact HEENT- no abnormality Cardiovascular - RRR no m/r/g, no JVD, no carotid bruits Lungs -left basal mild creps, no use of acessory muscles, no crackles or wheezes. Skin - No rashes, skin warm and dry, no erythematous areas Abdomen - abdomen soft, diffuse tenderness, no rebound tenderness Extremeties - No edema, cyanosis or clubbing Musculo Skeletal - 5/5 strength, normal range of motion, no swollen or erythematous joints. Neurological Alert and oriented x 3, CN 2-12 grossly intact. Psychiatry- mood stable. Result Diagrams: 03/29/19 05:29 03/29/19 05:29 Additional Lab and Data: Above labs were pulled into the note when edited prior to signing, please see labs from day of consultation below. Laboratory Tests 03/27/19 03/27/19 03/27/19 10:39 10:39 15:07 WBC 14.3 H Hgb 14.3 Hct 44 Plt Count 281 Sodium 147 H Potassium 2.9 L Chloride 111 Carbon Dioxide 27 BUN 41 H Creatinine 0.48 L Glucose 113 H Total Protein 7.1 Albumin 3.8 Assess/Plan/Problems-Billing Assessment: Ms. Yajaira Paige is a 83 yo female, bedbound, ADL assisted, presented with altered mental status, found to have sepsis which is likely caused by community acquired pneumonia. She was also found to have stage 2 sacral decubitus ulcer. - Patient Problems (1) Sepsis Current Visit: Yes Status: Acute Comment: - Likely source: CAP - left lung minimal consolidation confirmed by CT chest - also pyuria found, urine c/s staph lugdunesis, contamination likely - blood c/s neg - continue levofloxacin - wean down O2 today (2) Decubitus ulcer of sacral region, stage 2 Current Visit: Yes Status: Acute Code(s): L89.152 - PRESSURE ULCER OF SACRAL REGION, STAGE 2 SNOMED Code(s): 994777097 Comment: -barrier cream to sacral sore (3) Decubitus ulcer, hip Current Visit: Yes Status: Acute Code(s): L89.209 - PRESSURE ULCER OF UNSPECIFIED HIP, UNSPECIFIED STAGE SNOMED Code(s): 633611515 Comment: frequent turning and repositioning (4) DVT prophylaxis Current Visit: No Status: Acute Code(s): NWB5540 - SNOMED Code(s): 008526207 Comment: - SQ Lovenox (5) Full code status Current Visit: No Status: Acute Code(s): Z78.9 - OTHER SPECIFIED HEALTH STATUS SNOMED Code(s): 446790482 Status and Disposition: Inpatient Medicine for now, Aim home soon after weaning off O2 Attestation Documenting Resident: Anni Casey Supervising Physician: Umair Draper Attending/Supervising Physician Comment: Agree with plan as outlined in note from Dr. Casey unless indicated Sepsis 2/2 PNA now improving Profoundly dehydrated on presentation, D5 1/2 NS while serum sodium remains elevated Severe protein calorie malnutrition Attestation: This service has been performed in part by a resident under the direction of a teaching physician.I, Umair Draper, performed the service, or was physically present during the critical, or glez portions of the service, furnished by the resident. I participated in the management of the patient.
[2019-03-29] MEDS: Enoxaparin(*) 40 MG/0.4 ML SYR SUBCUT SCH (17:50)
[2019-03-29 18:57] LABS: ABS Eosinophils 0.1 10^3/ul (0-0.6); ABS Lymphocytes 0.6 10^3/ul (1.0-4.8); ABS Monocytes 0.4 10^3/ul (0-0.8); ABS Neutrophils 7.1 10^3/ul (1.5-7.7); Eosinophil % 0.7 %; Hematocrit 33 % (35-47); Hemoglobin 10.6 g/dL (12.0-16.0); Lymphocyte % 7.7 %; Mean Corpuscular HGB Conc 32 g/dL (31-36); Mean Corpuscular Hemoglobin 33 pg (27-31); Mean Corpuscular Volume 102 fL (80-97); Mean Platelet Volume 8.2 fL (7.4-10.4); Platelet Count 185 10^3/uL (150-450); Red Blood Count 3.25 10^6 /uL (3.70-4.87); Red Cell Distribution Width 13 % (10-15); White Blood Count 8.2 10^3/uL (3.5-10.8)
[2019-03-29] MEDS ORDERED: D5W 1/2 NS 1000 ML BAG* 1,000 ML IV SCH (19:00)
[2019-03-29 19:37] LABS: Calcium 8.6 mg/dL (8.6-10.3)
[2019-03-29 19:43] LABS: BUN/Creatinine Ratio 80.6 (8-20); EGFR African American 207.8 (>60); EGFR Non-African American 171.7 (>60)
[2019-03-29] MEDS: Levofloxacin 750 MG IVPREMIX(* 750 MG/150 ML BAG IVPB SCH (23:23)
[2019-03-30] MEDS: NS 0.45% 1000 ML BAG* 1,000 ML IV SCH (12:47)
[2019-03-30] MEDS: Enoxaparin(*) 40 MG/0.4 ML SYR SUBCUT SCH (16:43)
--- NOTE | 2019-03-30 17:30 | PN ---
Subjective Date of Service: 03/30/19 Interval History: Patient was able to obey command, but still few verbal output. She was able to eat when her son feeds her. Objective Active Medications: Enoxaparin Sodium (Lovenox(*)) 40 mg SUBCUT Q24H [facility] Last Admin: 03/30/19 16:43 Dose: 40 mg Levofloxacin/Dextrose (Levaquin 750 Mg Ivpremix(*)) 750 mg in 150 mls @ 100 mls /hr IVPB Q24H [facility]; Protocol Last Admin: 03/29/19 23:23 Dose: 100 mls/hr Sodium Chloride (Ns 0.45% 1000 Ml Bag*) 1,000 mls @ 100 mls/hr IV PER RATE [facility] Stop: 03/31/19 21:59 Last Admin: 03/30/19 12:47 Dose: 100 mls/hr Polyethylene Glycol/Electrolytes (Miralax*) 17 gm PO DAILY PRN PRN Reason: CONSTIPATION Senna (Senokot 8.6 Mg Tab*) 1 tab PO DAILY PRN PRN Reason: CONSTIPATION Vital Signs - 8 hr 03/30/19 11:15 Temperature 97.7 F Pulse Rate 91 Respiratory 20 Rate Blood Pressure 117/55 (mmHg) O2 Sat by Pulse 100 Oximetry Oxygen Devices in Use Now: Nasal Cannula Exam: General - responds to verbal stimulus and tactile stimulus. speak in words. Eyes - PERRLA, EOM intact HEENT- no abnormality Cardiovascular - RRR no m/r/g, no JVD, no carotid bruits Lungs -left basal mild creps, no use of acessory muscles, no crackles or wheezes. Skin - No rashes, skin warm and dry, no erythematous areas Abdomen - abdomen soft, diffuse tenderness, no rebound tenderness Extremeties - No edema, cyanosis or clubbing Musculo Skeletal - muscle contraction seen on bilateral hands and legs. Neurological alert, not oriented to TPP Psychiatry- mood stable. Result Diagrams: 03/29/19 18:48 03/29/19 18:48 Additional Lab and Data: Above labs were pulled into the note when edited prior to signing, please see labs from day of consultation below. Laboratory Tests 03/27/19 03/27/19 03/27/19 10:39 10:39 15:07 WBC 14.3 H Hgb 14.3 Hct 44 Plt Count 281 Sodium 147 H Potassium 2.9 L Chloride 111 Carbon Dioxide 27 BUN 41 H Creatinine 0.48 L Glucose 113 H Total Protein 7.1 Albumin 3.8 Assess/Plan/Problems-Billing Assessment: Ms. Yajaira Paige is a 83 yo female, bedbound, ADL assisted, presented with altered mental status, found to have sepsis which is likely caused by community acquired pneumonia. She was also found to have stage 2 sacral decubitus ulcer. - Patient Problems (1) Sepsis Current Visit: Yes Status: Acute Comment: - Likely source: CAP - left lung minimal consolidation confirmed by CT chest - also pyuria found, urine c/s staph lugdunesis, contamination likely - blood c/s neg - D3 levofloxacin, aim for 7 days - wean down O2 today (2) Decubitus ulcer of sacral region, stage 2 Current Visit: Yes Status: Acute Code(s): L89.152 - PRESSURE ULCER OF SACRAL REGION, STAGE 2 SNOMED Code(s): 499270533 Comment: -barrier cream to sacral sore (3) Decubitus ulcer, hip Current Visit: Yes Status: Acute Code(s): L89.209 - PRESSURE ULCER OF UNSPECIFIED HIP, UNSPECIFIED STAGE SNOMED Code(s): 176541886 Comment: frequent turning and repositioning (4) DVT prophylaxis Current Visit: No Status: Acute Code(s): XRM9593 - SNOMED Code(s): 768406419 Comment: - SQ Lovenox (5) Full code status Current Visit: No Status: Acute Code(s): Z78.9 - OTHER SPECIFIED HEALTH STATUS SNOMED Code(s): 583759293 Status and Disposition: Inpatient Medicine for now, Aim home soon after weaning off O2 Attestation Documenting Resident: Anni Casey Supervising Physician: Umair Draper Attending/Supervising Physician Comment: Agree with plan as outlined in note from Dr. Casey unless noted here. Unable to tell tianna her name today but reportedly eating better Oxygen demand decreasing c/w abx for PNA and possible UTI Attestation: This service has been performed in part by a resident under the direction of a teaching physician.I, Umair Draper, performed the service, or was physically present during the critical, or glez portions of the service, furnished by the resident. I participated in the management of the patient.
[2019-03-30] MEDS: Levofloxacin 750 MG IVPREMIX(* 750 MG/150 ML BAG IVPB SCH (23:41)
[2019-03-31] MEDS: NS 0.45% 1000 ML BAG* 1,000 ML IV SCH (05:20)
[2019-03-31 07:37] LABS: Blood Urea Nitrogen 16 mg/dL (6-24); CO2 Carbon Dioxide 25 mmol/L (22-32); Calcium 7.6 mg/dL (8.6-10.3); Chloride 110 mmol/L (101-111); EGFR African American 256.5 (>60); EGFR Non-African American 211.9 (>60); Glucose 101 mg/dL (70-100); Potassium 3.4 mmol/L (3.5-5.0)
[2019-03-31 08:08] LABS: Anion Gap 8 mmol/L (2-11); Sodium 143 mmol/L (135-145)
[2019-03-31] MEDS ORDERED: Potassium Chloride* LIQUID 20 MEQ/15 ML UDC PO ONE (09:38)
[2019-03-31 12:02] VITALS: BP 134/62
--- NOTE | 2019-03-31 18:44 | DS ---
CC: Jayden Murcia NP * DISCHARGE SUMMARY: DATE OF ADMISSION: 03/27/19 DATE OF DISCHARGE: 03/31/19 PRIMARY CARE PROVIDER: Jayden Murcia NP DISPOSITION ON DISCHARGE: Home. CONDITION ON DISCHARGE: Stable, although prognosis remains guarded. MEDICATIONS AT DISCHARGE: 1. Balsalazide 3000 mg twice daily. 2. Levaquin 750 mg for 4 additional days. 3. Macrobid 100 mg twice daily for 5 additional days. 4. MiraLAX 17 g daily as needed for constipation. PRIMARY DIAGNOSES: 1. Pneumonia. 2. Urinary tract infection. 3. Hypernatremia. SECONDARY DIAGNOSES: Include: 1. Sacral decubitus, stage II. 2. Right heel deep tissue injury. 3. Constipation. 4. Ulcerative colitis. 5. Hyperlipidemia. 6. Trigeminal neuralgia. 6. History of lower bowel obstruction. PERTINENT MICROBIOLOGY: Staph lugdunensis urinary tract infection. PERTINENT IMAGING: CT abdomen and pelvis: Left basilar consolidation seen incidentally on chest cuts, large amount of stool throughout the colon with large stool ball in the rectum, soft tissue thickening along the anus. HISTORY OF PRESENT ILLNESS AND HOSPITAL COURSE: An 83-year-old female with past medical history as outlined in the history of present illness, who on the day of admission presented to the hospital with altered mental status described as unable to converse with her son, who is her president financial institution at home. At baseline, the patient's son, who cares for her at home including all ADLs and IADLs, indicates that she is conversant with short phrases, however, became essentially nonverbal and was eating less, presented to the hospital, where here she was found with urinary tract infection as well as pneumonia as well as new oxygen requirement. It was thought underlying pneumonia was primary cause of her decompensation. She improved with ceftriaxone and azithromycin. She was discharged to continue antibiotics as listed above as well as Macrobid for Staph lugdunensis grown in the urine, although unclear if this was clearly pathogenic or colonization. With antibiotics, the patient improved to her baseline mental status as indicated by her son. The patient has gross protein calorie malnutrition while she was eating close to her baseline as indicated by her son. I did discuss I think the patient is actually in the dying process as indicated by dramatic deconditioning, nonverbal state, weight loss, profound debility, and protein calorie malnutrition. She is improved from this acute infectious etiology, however, I suspect future recurrences, most likely pneumonia or urinary tract infection to recur as they frequently do in severely disabled individuals. This was clear with the son, who wishes to keep patient full code, although he is unclear what her wishes would have been because they did not discuss it previously. Additionally, she does have stage II sacral decubitus ulcer and some significant skin breakdown on her heel. He is apparently giving her good care at home, however, these may be difficult to prevent from worsening given her debility and protein calorie nutrition. At followup please: 1. Evaluate for stability of sacral decubitus and heel ulcers. 2. Continue discussion surrounding long-term goals of care. 3. Ensure the patient is continuing to have bowel movements. She had multiple bowel movements during hospital stay with stool softeners and laxatives. On the day of discharge, she had an x-ray that they indicated with continued stool in the belly. Reasons to return to the hospital, including but not limited to recurrent or worsening symptoms, worsening mental status, fevers, chills, or night sweats, coughing, shortness of breath, chest pain, more bleeding from any source, inability to obtain or tolerate medication were discussed with the son and he acknowledged understanding. The patient was discharged on room air. [id number]/[facility] #: [id number] ROBERT
== END 2019-03-31 17:45 | disposition home or self-care (01) | DRG 871 ==
LOC: ED 09:52 → MEDTELE 16:08
PROVIDERS: ADMIT Internal Medicine; ATTEND Internal Medicine
DX: A41.9 Sepsis, unspecified organism (principal); G93.41 Metabolic encephalopathy; E43 Unspecified severe protein-calorie malnutrition; J18.9 Pneumonia, unspecified organism; E87.0 Hyperosmolality and hypernatremia; L97.418 Non-pressure chronic ulcer of right heel and midfoot with other specified severity; K51.90 Ulcerative colitis, unspecified, without complications; N39.0 Urinary tract infection, site not specified; Z68.1 Body mass index [BMI] 19.9 or less, adult; L89.152 Pressure ulcer of sacral region, stage 2; L89.221 Pressure ulcer of left hip, stage 1; C50.912 Malignant neoplasm of unspecified site of left female breast; E78.5 Hyperlipidemia, unspecified; G50.0 Trigeminal neuralgia; B95.7 Other staphylococcus as the cause of diseases classified elsewhere; K59.00 Constipation, unspecified; R32 Unspecified urinary incontinence; R74.8 Abnormal levels of other serum enzymes; R73.01 Impaired fasting glucose; Z96.642 Presence of left artificial hip joint; Z92.3 Personal history of irradiation; Z92.21 Personal history of antineoplastic chemotherapy; Z74.01 Bed confinement status; Z88.0 Allergy status to penicillin; Z79.899 Other long term (current) drug therapy
CPT/HCPCS: 36415; 71045; 71250; 74019; 74177; 80048; 80053; 81003; 81015; 82607; 82746; 83036; 83605; 83735; 84484; 85025; 85610; 85730; 87040; 87077; 87086; 87186; 87899; 93005; 99284; A9270-GY; J0744; J1650; J3480; Q9967